=== PATIENT | female | born 1975 | race Caucasian/White ===

== ENCOUNTER 2018-01-16 17:42 | Emergency (ER) | payer MEDICAID, SELFPAY ==
[2018-01-16 17:44] VITALS: BP 118/72; PULSE 86; RESP 16; TEMP 36.9; O2SAT 98; BMI 29.5
--- NOTE | 2018-01-16 18:05 | CT_ITS ---
STUDY: CT ABDOMEN AND PELVIS WITHOUT CONTRAST REASON FOR EXAM: Female, 43 years old. Right flank pain RADIATION DOSAGE (If Supplied By Facility): CTDIvol = ( 14.41 ) mGy, DLP = ( 710.34 ) mGycm TECHNIQUE: Transaxial images were obtained from the dome of the diaphragm to the symphysis pubis without oral contrast, and without intravenous contrast. Sagittal and coronal images were reconstructed. Individualized dose optimization techniques were used for this CT. COMPARISON: None. FINDINGS: There is interstitial thickening at both lung bases. The visualized portions of the heart are within normal limits. Normal liver. Gallbladder has been removed surgically. Normal spleen. Normal pancreas. Normal bilateral adrenal glands. No evidence for renal obstruction or definitive evidence for ureteral calculus. There is a small cyst in the lateral aspect of the right kidney Normal visualized stomach. Normal small intestine. Diverticular changes of the descending and sigmoid colon without evidence for acute diverticulitis. The appendix is visualized and appears normal. Normal abdominal aorta. Normal inferior vena cava. Normal retroperitoneum. Normal urinary bladder. Normal uterus not visualized suggesting prior partial hysterectomy Normal abdominal wall. Lumbar spine demonstrates mild spondylosis.. There is grade 1 spondylolisthesis at L5-S1 status post bilateral laminectomy and posterior fusion. CT/Abdomen/Pelvis without Cont IMPRESSION: No evidence for obstruction or definitive evidence for ureteral calculus Postsurgical changes status post cholecystectomy. Diverticular changes of the descending and sigmoid colon without evidence for acute diverticulitis Electronically Signed: Edilberto Durham MD at 19:44 EDT , Service support ,
[2018-01-16] MEDS: Ondansetron 4 MG/2 ML Vial IV (18:33)
[2018-01-16] MEDS: 0.9% Normal Saline 1,000 ML 250 ML IV (18:33)
[2018-01-16] MEDS: Morphine 4 MG/ML Syringe IV (18:34)
[2018-01-16] MEDS: Ketorolac 30 MG/ML Syringe IV (18:34)
[2018-01-16 18:43] LABS: Absolute Lymphocyte Count 1.89 X10^3/ul (0.83-4.51); Basophil# 0.03 X10^3/uL; Basophil% 0.4 % (0-1); Eosinophil# 0.12 X10^3/uL; Eosinophils% 1.6 % (0-5); Hematocrit 42.8 % (37-47); Hemoglobin 14.3 g/dl (12.0-15.0); Lymphocyte # 1.89 X10^3/ul (4.0); Mean Corp Hgb Conc 33.4 g/gl (32-36); Mean Corpuscular Hgb 30.3 pg (27.0-32.0); Mean Corpuscular Volume 90.7 fL (81-99); Mean Platelet Vol. 9.8 fl (6.2-12.0); Monocyte# 0.49 X10^3/uL; Monocyte% 6.5 % (0-10); Neutrophil # 5.02 X10^3/uL (2.7-7.7); Neutrophil % 66.2 % (47-70); Platelet Count 168 K/mm3 (150-450); RBC Distribution Width CV 13.3 % (11.6-14.6); Red Blood Count 4.72 M/mm3 (4.2-5.4); White Blood Count 7.6 K/mm3 (4.4-11.0)
[2018-01-16 18:46] LABS: Differential Indicated SCAN CRITERIA MET; POSITIVE COUNT NO; POSITIVE DIFFERENTIAL NO; POSITIVE MORPHOLOGY YES
[2018-01-16 18:58] LABS: Anion Gap 6 (5-15); BUN 16 mg/dL (7-18); Calcium,Total 8.6 mg/dL (8.5-10.1); Chloride 107 mmol/L (98-107); Creatinine, Serum 0.94 mg/dL (0.55-1.02); EST Glomerular Filtration Rate 69 mL/min (>60); Est Glom Filt Rate - Afr Amer 84 mL/min (>60); Estimated Creatinine Clearance 66.64 ml/min; Glucose 94 mg/dL (74-106); Sodium Level 142 mmol/L (136-145)
[2018-01-16 19:05] LABS: Differential Comment SCANNED
[2018-01-16 20:07] LABS: Mucous, Urine 0 SEEN /hpf (<or=2+); Squamous Epithelial Cells - UA 0 SEEN /hpf (5-10)
[2018-01-16 20:10] LABS: Color, Urine Yellow (Yellow); Glucose, Dipstick Normal (Normal); Ketone-Dipstick 5 mg/dl (Negative); Leukocyte Esterase-Dipstick Negative /ul (Negative); Nitrite-Dipstick Negative (Negative); Occult Blood-Urine 10 /ul (Negative); Protein-Dipstick Negative (Negative); Specific Gravity, Urine 1.015 (1.002-1.030); Urine Bilirubin Dipstick Negative (Negative); Urine Clarity Cloudy (Clear); Urine Urobilinogen Normal (Normal)
[2018-01-16 20:25] LABS: Red Blood Cells-Urine 0-5 SEEN /hpf (0-5); White Blood Cells 0-5 SEEN /hpf (0-5)
[2018-01-16 20:26] LABS: Amorphous Sediment 3+; Bacteria 1+ /hpf (None Seen)
--- NOTE | 2018-01-16 20:40 | ED.DEP ---
ED Disposition - Plan for ED Patient: Disposition: Home or Assisted Living Chief Complaint: Flank Pain Instructions: ED Flank Pain Uncertain Cause Prescriptions: Ketorolac [Toradol] 10 mg PO Q6H PRN #20 tablet PRN Reason: Pain Referrals: Yolanda Corbett MD [STAFF PHYSICIAN] - Manisha Salter MD [STAFF PHYSICIAN] - Reece Vickers MD [STAFF PHYSICIAN] -
[2018-01-16 20:58] VITALS: BP 122/71; PULSE 74; RESP 16; O2SAT 97
--- NOTE | 2018-01-17 01:52 | ED.DCSUM_ITS ---
- ER Visit Summary Date of Service: 01/17/18 Chief Complaint: Right flank pain History of Present Illness: The patient is a 43 F with intermittent right flank pain for the past couple of weeks. She states it was worse today. It is sharp like an ice pick. She denies dysuria but does note she is not been urinating as much as normal. Patient has a history of kidney stones. She has had ureteral stents placed twice. She had an L 5, S1 fusion in August of this year and had a hysterectomy in February 2017. Patient's primary workup and evaluations have been done in [place]. She recently moved to this area with her daughter. Physical Examination: Vital signs are unremarkable. Patient sitting upright in bed no acute distress. Head neck examination is unremarkable. Heart is regular rate and rhythm. Lung sounds are clear. Abdomen is soft with no focal anterior tenderness. She has hypoactive bowel sounds. Back examination does reveal right CVA tenderness. Test Results: CBC and chemistry studies normal. Urinalysis shows 5 ketones. 0- 5 white cells, 0-5 red cells, and 3+ sediment are noted. CT flank shows no evidence of obstruction or definitive evidence of ureteral calculus. There is evidence of diverticulosis without diverticulitis. Emergency Department Course and Treatment: Patient was initially given morphine, Toradol, Zofran, and IV fluids. After returning from CT she was given 1 tab of Tornado by mouth. Test results are discussed with the patient. She will be treated with Toradol at home and referred to local physicians for follow-up. Treatment Plan: [] Disposition: Discharge Impression: Right flank pain, uncertain etiology This note was generated with [employer] dictation software. It may contain incorrect words, spelling, and punctuation that were not noted in review of the chart prior to signing ED Disposition - Plan for ED Patient: Disposition: Home or Assisted Living Chief Complaint: Flank Pain Instructions: ED Flank Pain Uncertain Cause Prescriptions: Ketorolac [Toradol] 10 mg PO Q6H PRN #20 tablet PRN Reason: Pain Referrals: Reece Vickers MD [STAFF PHYSICIAN] - Manisha Salter MD [STAFF PHYSICIAN] - Yolanda Corbett MD [STAFF PHYSICIAN] -
== END 2018-01-16 21:01 | disposition home or self-care (01) ==
PROVIDERS: Emergency Provider Emergency Medicine
DX: R10.9 Unspecified abdominal pain (principal); K57.90 Diverticulosis of intestine, part unspecified, without perforation or abscess without bleeding; Z90.710 Acquired absence of both cervix and uterus; Z87.442 Personal history of urinary calculi; Z98.1 Arthrodesis status
CPT/HCPCS: 74176; 80048; 81001; 85025; 96361; 96374; 96375; 99283; J7030; J2405

== ENCOUNTER 2018-02-12 00:08 | Emergency (ER) | payer MEDICAID, SELFPAY ==
[2018-02-12 00:08] VITALS: BP 150/81; PULSE 113; RESP 24; TEMP 36.8; O2SAT 100; BMI 30.1
[2018-02-12 00:13] VITALS: PULSE 104; RESP 21; O2SAT 97; O2SAT 99
--- NOTE | 2018-02-12 00:15 | RAD_ITS ---
STUDY: X-RAY CHEST REASON FOR EXAM: Female, 43 years old. Shortness of breath TECHNIQUE: Single frontal view of the chest. COMPARISON: None. FINDINGS: Basilar atelectasis. No focal consolidation. Question tiny left pleural effusion versus pleural thickening. Normal size heart. Normal mediastinum and myles. Normal visualized pulmonary arteries. Normal visualized aortic arch and descending thoracic aorta. Normal visualized thoracic spine. Normal visualized ribs, clavicles, and shoulders. There is no demonstrated abnormality of the visualized soft tissue structures of the upper abdomen. RAD/Chest 1 View (Portable) IMPRESSION: Question tiny left pleural effusion versus pleural thickening. Basilar atelectasis. No focal consolidation. Electronically Signed: Enrique Taylor, at 1:23 EST Tel , Service support ,
--- NOTE | 2018-02-12 00:16 | EKG12_ITS ---
Test Reason : CHEST TIGHTNESS Blood Pressure : / mmHG Vent. Rate : 102 BPM Atrial Rate : 102 BPM P-R Int : 172 ms QRS Dur : 086 ms QT Int : 348 ms P-R-T Axes : 061 029 048 degrees QTc Int : 453 ms Sinus tachycardia Otherwise normal ECG Confirmed by LUL KIDD, ROHINI ([id number]), photographic editor JEFF TYSON ([id number]) on 02/14/2018 1:05:19 PM Referred By: DR DICK Confirmed By:ROHINI MCCARTY MD
--- NOTE | 2018-02-12 00:19 | ED.RN ---
NO OLD EKGS IN MUSE
[2018-02-12] MEDS: 0.9% Normal Saline 1,000 ML 1000 ML IV (00:20)
[2018-02-12] MEDS: Ipratropium/Albuterol Sulfate 3 ML AMPUL.NEB INHALATION (00:23)
[2018-02-12] MEDS: Albuterol 2.5 MG/3 ML VIAL.NEB. INHALATION ×2 (00:23→00:54)
[2018-02-12 00:25] VITALS: PULSE 100; RESP 20
--- NOTE | 2018-02-12 00:26 | ED.VISSUMM ---
- ER Visit Summary Date of Service: 02/12/18 Chief Complaint: Shortness of breath History of Present Illness: The patient is a 43 F presenting with shortness of breath. Patient states she has not felt well for the past couple of weeks. She states she has a productive cough and shortness of breath. She had subjective fever and chills. She has had mild diarrhea. Denies nausea or vomiting. Denies abdominal pain. Denies chest pain. She has a history of asthma and uses an inhaler at home. She is a smoker. She denies PE/DVT risk factors. Physical Examination: Vitals are stable. Patient is afebrile. Alert no acute distress. HEENT exam is unremarkable. Pharynx is normal, uvula midline. Neck is supple. Lungs are mild expiratory wheezing bilaterally. Heart is regular and tachycardic Abdomen is soft nontender nondistended. Extremities are unremarkable. Skin is warm and dry. No focal neurologic deficit. Remainder of exam is unremarkable. Emergency Department Course and Treatment: EKG is sinus tachycardia rate of 102 with no acute ischemic changes. She is given IV fluids, albuterol, Atrovent aerosols. CBC, chemistries unremarkable. D-dimer is normal. Troponin is negative. Patient is feeling improved following aerosols. She has a Symbicort inhaler but she does not have an albuterol inhaler. She is given albuterol MDI. Chest x-ray shows question tiny left pleural effusion versus pleural thickening. Basilar atelectasis. No focal consolidation. On reevaluation, patient is feeling much improved. Lungs are clear to auscultation bilaterally. She is given prednisone and a prescription for prednisone. She is advised to follow-up with her primary care physician. Advised return to ED for any worsening complaints. Disposition: Discharge home Impression: URI, asthma This note was generated with [employer] dictation software. It may contain incorrect words, spelling, and punctuation that were not noted in review of the chart prior to signing ED Disposition - Plan for ED Patient: Chief Complaint: Shortness of Breath Referrals: Care Physician,No Primary [Primary Care Provider] -
[2018-02-12 00:37] LABS: Absolute Lymphocyte Count 1.51 X10^3/ul (0.83-4.51); Absolute Neutrophil Count 8.3 X10^3/uL (2.0-7.7); Basophil# 0.04 X10^3/uL; Basophil% 0.4 % (0-1); Eosinophil# 0.05 X10^3/uL; Eosinophils% 0.5 % (0-5); Hematocrit 43.8 % (37-47); Hemoglobin 14.9 g/dl (12.0-15.0); Lymphocyte # 1.51 X10^3/ul (4.0); Lymphocyte % 14.3 % (19-41); Mean Corpuscular Hgb 30.2 pg (27.0-32.0); Mean Corpuscular Volume 88.8 fL (81-99); Mean Platelet Vol. 9.5 fl (6.2-12.0); Monocyte# 0.65 X10^3/uL; Monocyte% 6.2 % (0-10); Neutrophil # 8.26 X10^3/uL (2.7-7.7); Neutrophil % 78.3 % (47-70); Platelet Count 161 K/mm3 (150-450); RBC Distribution Width CV 13.4 % (11.6-14.6); Red Blood Count 4.93 M/mm3 (4.2-5.4); White Blood Count 10.5 K/mm3 (4.4-11.0)
[2018-02-12 00:40] LABS: POSITIVE COUNT NO; POSITIVE DIFFERENTIAL NO; POSITIVE MORPHOLOGY NO
[2018-02-12 00:46] LABS: D-Dimer Quantitative (DVT/PE) 0.42 FEU/ug/m (0.27-0.49)
[2018-02-12 00:52] LABS: Anion Gap 8 (5-15); BUN 10 mg/dL (7-18); BUN/Creat Ratio 12.6 RATIO (10-20); Calcium,Total 8.3 mg/dL (8.5-10.1); Chloride 109 mmol/L (98-107); EST Glomerular Filtration Rate 84 mL/min (>60); Est Glom Filt Rate - Afr Amer 101 mL/min (>60); Estimated Creatinine Clearance 75.01 ml/min; Glucose 99 mg/dL (74-106); Potassium 3.5 mmol/L (3.5-5.1); Sodium Level 141 mmol/L (136-145)
[2018-02-12 00:55] VITALS: PULSE 101; RESP 20
--- NOTE | 2018-02-12 01:31 | ED.DEP ---
ED Disposition - Plan for ED Patient: Chief Complaint: Shortness of Breath Instructions: ED Bronchitis Asthmatic Prescriptions: Prednisone [Deltasone] 40 mg PO DAILY #10 tablet Referrals: Care Physician,No Primary [Primary Care Provider] -
[2018-02-12] MEDS: predniSONE 20 MG Tablet 60 MG PO (01:50)
[2018-02-12 01:55] VITALS: BP 128/72; PULSE 98; RESP 15; O2SAT 98
== END 2018-02-12 01:56 | disposition home or self-care (01) ==
LOC: ED 00:49
PROVIDERS: Emergency Provider Emergency Medicine
DX: J06.9 Acute upper respiratory infection, unspecified (principal); J45.909 Unspecified asthma, uncomplicated; R19.7 Diarrhea, unspecified; Z72.0 Tobacco use
CPT/HCPCS: 71045; 80048; 84484; 85025; 85379; 93005; 94640; 94664; 99284; J7030; A4216

== ENCOUNTER 2018-03-05 22:17 | Emergency (ER) | payer MEDICAID, SELFPAY ==
[2018-03-05 22:18] VITALS: BP 132/82; PULSE 97; RESP 16; TEMP 37.1; O2SAT 97; BMI 32.8
--- NOTE | 2018-03-05 22:33 | CT_ITS ---
STUDY: CT ABDOMEN AND PELVIS WITHOUT CONTRAST REASON FOR EXAM: Female, 43 years old. Bilateral flank pain. History of kidney stones with stents and lithotripsy. History of diverticulitis. RADIATION DOSAGE (If Supplied By Facility): CTDIvol = ( 14.01 ) mGy, DLP = ( 749.12 ) mGycm TECHNIQUE: Transaxial images were obtained from the dome of the diaphragm to the symphysis pubis without oral contrast, and without intravenous contrast. Sagittal and coronal images were reconstructed. Individualized dose optimization techniques were used for this CT. COMPARISON: CT of the abdomen and pelvis, January 16, 2018. FINDINGS: The visualized lung bases are unremarkable. The visualized portions of the heart are within normal limits. Normal liver. There are surgical clips in the gallbladder fossa consistent with a prior cholecystectomy. Normal spleen. Normal pancreas. Normal bilateral adrenal glands. There is 1.3 cm exophytic cyst off the upper pole of the right kidney. Normal left kidney. Normal bilateral ureters. Normal visualized stomach. Normal small intestine. Scattered sigmoid diverticuli without acute inflammatory change. The proximal colon is unremarkable. The appendix is visualized and appears normal. Normal abdominal aorta. Normal inferior vena cava. Normal retroperitoneum. Normal urinary bladder. Normal vaginal cuff. There is soft tissue density along both pelvic side paula thought to represent retained ovaries. No free air or free fluid is seen within the peritoneal cavity. Normal abdominal wall. There is surgical fusion of L5-S1. CT/Abdomen/Pelvis without Cont IMPRESSION: No acute intra-abdominal or pelvic abnormality or major interval change. Electronically Signed: Donovan Thakkar DO at 23:19 EST Tel [phone], Service support ,
[2018-03-05] MEDS: Ketorolac 30 MG/ML Syringe IV (22:40)
[2018-03-05] MEDS: Ondansetron 4 MG/2 ML Vial IV (22:40)
[2018-03-05] MEDS: 0.9% Normal Saline 1,000 ML 1000 ML IV (22:40)
[2018-03-05 22:47] LABS: Absolute Lymphocyte Count 1.84 X10^3/ul (0.83-4.51); Absolute Neutrophil Count 5.3 X10^3/uL (2.0-7.7); Basophil# 0.02 X10^3/uL; Basophil% 0.2 % (0-1); Eosinophil# 0.14 X10^3/uL; Eosinophils% 1.7 % (0-5); Hematocrit 43.2 % (37-47); Hemoglobin 14.2 g/dl (12.0-15.0); Lymphocyte # 1.84 X10^3/ul (4.0); Mean Corp Hgb Conc 32.9 g/gl (32-36); Mean Corpuscular Hgb 30.1 pg (27.0-32.0); Mean Corpuscular Volume 91.5 fL (81-99); Mean Platelet Vol. 9.4 fl (6.2-12.0); Monocyte# 0.66 X10^3/uL; Monocyte% 8.2 % (0-10); Neutrophil # 5.34 X10^3/uL (2.7-7.7); Neutrophil % 66.8 % (47-70); POSITIVE COUNT NO; POSITIVE DIFFERENTIAL NO; POSITIVE MORPHOLOGY NO; Platelet Count 172 K/mm3 (150-450); RBC Distribution Width CV 13.3 % (11.6-14.6); RBC Distribution Width SD 44.4 fl (35.1-43.9); Red Blood Count 4.72 M/mm3 (4.2-5.4)
[2018-03-05 22:58] LABS: AST(SGOT) 11 U/L (15-37); Alanine Aminotransfer ALT/SGPT 15 U/L (13-56); Albumin, Serum 3.3 g/dL (3.2-5.0); Alkaline Phosphatase 73 U/L (45-117); Anion Gap 3 (5-15); BUN 22 mg/dL (7-18); Calcium,Total 8.3 mg/dL (8.5-10.1); Chloride 109 mmol/L (98-107); EST Glomerular Filtration Rate 58 mL/min (>60); Est Glom Filt Rate - Afr Amer 70 mL/min (>60); Estimated Creatinine Clearance 54.55 ml/min; Globulin 3.4 g/dL (2.2-4.2); Glucose 108 mg/dL (74-106); Lipase 170 U/L (73-393); Potassium 3.7 mmol/L (3.5-5.1); Protein, Total 6.7 g/dL (6.4-8.2); Sodium Level 141 mmol/L (136-145)
[2018-03-05 23:44] LABS: Bacteria 0 SEEN /hpf (None Seen); Red Blood Cells-Urine 0 SEEN /hpf (0-5)
[2018-03-05 23:55] LABS: Color, Urine Yellow (Yellow); Glucose, Dipstick Normal (Normal); Ketone-Dipstick Negative (Negative); Leukocyte Esterase-Dipstick 25 /ul (Negative); Nitrite-Dipstick Negative (Negative); Occult Blood-Urine 10 /ul (Negative); Protein-Dipstick Negative (Negative); Urine Bilirubin Dipstick Negative (Negative); Urine Clarity Clear (Clear); Urine Urobilinogen 1 mg/dl (Normal)
[2018-03-06 00:15] LABS: White Blood Cells 0-5 SEEN /hpf (0-5)
[2018-03-06 00:16] LABS: Mucous, Urine 1+ /hpf (<or=2+)
[2018-03-06 00:18] LABS: Squamous Epithelial Cells - UA 0-5 SEEN /hpf (5-10)
[2018-03-06 00:19] LABS: Amorphous Sediment 1+
--- NOTE | 2018-03-06 00:26 | ED.DCSUM_ITS ---
- ER Visit Summary Date of Service: 03/06/18 Chief Complaint: Flank pain History of Present Illness: The patient is a 43 F who presents with flank pain. She complains of 2 days of bilateral flank pain and lower back pain. She describes this as dull. She did have nausea vomiting and diarrhea which began y esterday. She actually has had no further vomiting today. She denies any dysuria frequency or urgency but has noticed a foul odor to her urine. No fevers chest pain shortness of breath. She does have a history of kidney stones. Physical Examination: Afebrile vitals are unremarkable Moist mucous membranes Heart regular rate and rhythm Lungs are clear Abdomen soft nondistended he has bilateral flank and lateral abdominal tenderness Alert Test Results: Labs notable for BUN 22, creatinine 1.1. Hepatic function lipase unremarkable. Urinalysis shows no WBCs and no bacteria, not consistent with infection. CT the abdomen and pelvis shows no acute abnormality. Emergency Department Course and Treatment: Patient was treated here with IV fluids Toradol and Zofran. Her workup is unremarkable. Given that she did develop vomiting and diarrhea this may be related to a gastroenteritis with colonic spasm. She was given prescriptions for Bentyl and Zofran. She was advised to follow-up as an outpatient. She understands to return for new or worsening symptoms. She was discharged. Treatment Plan: [] Disposition: Discharge Impression: Abdominal pain Vomiting Diarrhea This note was generated with [employer] dictation software. It may contain incorrect words, spelling, and punctuation that were not noted in review of the chart prior to signing ED Disposition - Plan for ED Patient: Chief Complaint: Flank Pain Referrals: Care Physician,No Primary [Primary Care Provider] -
--- NOTE | 2018-03-06 00:27 | ED.DEP ---
ED Disposition - Plan for ED Patient: Chief Complaint: Flank Pain Instructions: ED Abdominal Pain Unkn Cause, ED Gastroenteritis Viral Prescriptions: Ondansetron [Zofran Odt] 4 mg PO Q8H PRN PRN #10 tab PRN Reason: Nausea Dicyclomine HCl [Bentyl] 20 mg PO TID #20 cap Referrals: Care Physician,No Primary [Primary Care Provider] -
[2018-03-06 00:40] VITALS: BP 118/76; PULSE 78; RESP 15; O2SAT 98
--- NOTE | 2018-03-06 00:41 | ED.RN ---
PT GIVEN WRITTEN AND VERBAL DISCHARGE INSTRUCTIONS AND HOME GOING PRESCRIPTIONS. PT VERBALIZES UNDERSTANDING AND DENIES ANY FURTHER QUESTIONS. PT IV D/C ND COVERED WITH 2X2 GAUZE AND PAPER TAPE. PT CALLING A CAB FOR A RIDE HOME.
--- OUTSIDE RECORDS SUMMARY | 2018-04-17 17:34 | XMS RPT_ITS ---
:1975 Author Organization OH[facility] Care Team Providers Name Role Phone Maegan Nowak Attending Unavailable Primay Care Physicia, No Primary Care Unavailable Primay Care Physicia, No Primary Care Unavailable Southern, Tania Attending Unavailable Primay Care Physicia, No Primary Care Unavailable Mukul Negrete Attending Unavailable PROBLEMS PROBLEMS DATE TYPE CONDITION / CODE ATTENDING STATUS SOURCE 03/20/2018 Unknown R06.02 - Southern, Active [place] Shortness of Tania [facility] breath / Hospital R06.02(ICD-10) Repository 02/09/2018 Unknown R10.9 - Maegan Nowak Active [place] Unspecified [facility] abdominal pain / Hospital R10.9(ICD-10) Repository PROCEDURES PROCEDURES No Procedure Records FoundRESULTS RESULTS DISCHARGE INSTRUCTION Observed: 03/06/2018 Status: F Source: [place] 12:28 AM [facility] REPOSITORY [facility] Medical Records Department [address] [place] [address] Discharge Instruction 03/06/18 0027 MR#: [id number] Acct: [id number] Name: WAN DUBOSE Rep #: [id number] : 1975 43 From: Mukul Negrete MD PCP: Care Physician, No Primary Status: REG ER ED Disposition - Plan for ED Patient: Chief Complaint: Flank Pain Instructions: ED Abdominal Pain Unkn Cause, ED Gastroenteritis Viral Prescriptions: Ondansetron [Zofran Odt] 4 mg PO Q8H PRN PRN #10 tab PRN Reason: Nausea Dicyclomine HCl [Bentyl] 20 mg PO TID #20 cap Referrals: Care Physician,No Primary [Primary Care Provider] - What to do if you have Problems For any increased pain, shortness of breath, bleeding, nausea or vomiting, chest pain, or any unexpected problems, contact your Primary Care Provider. Call [facility] ([phone]) or report to the closest Emergency Room. Call 911 if necessary. 03/06/18 0028 <Electronically signed by Mukul Negrete MD> Date Mukul Negrete MD Cosigner Signature (If Indicated): Date CC: No Primary Care Physician EMERGENCY DEPARTMENT Observed: 03/06/2018 Status: F Source: [place] SUMMARY 12:27 AM [facility] REPOSITORY [facility] Medical Records Department [address] [place] [address] Emergency Department Summary 03/06/18 0024 MR#: [id number] Acct: [id number] Name: WAN DUBOSE Rep #: [id number] : 1975 43 From: Mukul Negrete MD PCP: Yakov Physician, No Primary Status: REG ER - ER Visit Summary Date of Service: 03/06/18 Chief Complaint: Flank pain History of Present Illness: The patient is a 43 F who presents with flank pain. She complains of 2 days of bilateral flank pain and lower back pain. She describes this as dull. She did have nausea vomiting and diarrhea which began yesterday. She actually has had no further vomiting today. She denies any dysuria frequency or urgency but has noticed a foul odor to her urine. No fevers chest pain shortness of breath. She does have a history of kidney stones. Physical Examination: Afebrile vitals are unremarkable Moist mucous membranes Heart regular rate and rhythm Lungs are clear Abdomen soft nondistended he has bilateral flank and lateral abdominal tenderness Alert Test Results: Labs notable for BUN 22, creatinine 1.1. Hepatic function lipase unremarkable. Urinalysis shows no WBCs and no bacteria, not consistent with infection. CT the abdomen and pelvis shows no acute abnormality. Emergency Department Course and Treatment: Patient was treated here with IV fluids Toradol and Zofran. Her workup is unremarkable. Given that she did develop vomiting and diarrhea this may be related to a gastroenteritis with colonic spasm. She was given prescriptions for Bentyl and Zofran. She was advised to follow-up as an outpatient. She understands to return for new or worsening symptoms. She was discharged. Treatment Plan: [] Disposition: Discharge Impression: Abdominal pain Vomiting Diarrhea This note was generated with e-SENS dictation software. It may contain incorrect words, spelling, and punctuation that were not noted in review of the chart prior to signing ED Disposition - Plan for ED Patient: Chief Complaint: Flank Pain Referrals: Care Physician,No Primary [Primary Care Provider] - What to do if you have Problems For any increased pain, shortness of breath, bleeding, nausea or vomiting, chest pain, or any unexpected problems, contact your Primary Care Provider. Call [facility] ([phone]) or report to the closest Emergency Room. Call 911 if necessary. 03/06/18 0027 <Electronically signed by Mukul Negrete MD> Date Mukul Negrete MD Cosigner Signature (If Indicated): Date CC: No Primary Care Physician URINALYSIS, COMPLETE Collected: 03/05/2018 Status: F Source: [place] 11:35 PM [facility] REPOSITORY Order Comment: Order Date: 03/05/18 How was Urine Obtained? NATIONAL ACCOUNT EXECUTIVE TO SPECIFY TYPE CODE TESTS RESULT OUT OF RANGE REFERENCE UNITS LAB L400.3000 Yellow COLOR Normal Yellow LAB L400.3050 Clear Normal CLARITY Clear LAB L400.3200 Normal mg/dl Normal GLUCOSE, UR Normal LAB L400.3300 Negative mg/dL Normal BILIRUBIN URINE Negative LAB L400.3400 Negative mg/dl Normal KETONE UR Negative LAB L400.3465 1.002-1.030 Normal SP.GR. DIPSTX 1.010 LAB L400.3550 5.0 - 8.0 pH UR Normal 7.0 LAB L400.3600 Negative mg/dl PROT Normal DIPSTX Negative LAB L400.3700 Normal mg/dl High 1 UROBILI LAB L400.3750 Negative Normal NITRITE UR Negative LAB L400.3780 Negative /ul High 10 OCCULT BLOOD-UR LAB L400.3800 Negative /ul High LEUK 25 ESTERASE LAB L400.4050 0-5 /hpf WBC Normal 0-5 SEEN LAB L400.4100 0-5 /hpf 0 Normal RBC-UA SEEN LAB L400.4150 5-10 /hpf SQUAM Normal EPI 0-5 SEEN LAB L400.4300 None Seen /hpf 0 Normal BACTERIA SEEN LAB L400.4350 <or=2+ /hpf 1+ Normal MUCUS, URINE LAB L400.4900 1+ Normal AMORPHOUS Performed By: #### L400.0001 #### [facility] Laboratory [address] [facility] [place], [address] ABDOMEN/PELVIS WITHOUT Observed: 03/05/2018 Status: F Source: [place] CONT 10:34 PM [facility] REPOSITORY [facility] Imaging Services [address] [place] [address] Abdomen/Pelvis without Cont MR#: [id number] Acct: [id number] Name: WAN DUBOSE Rep #: [id number] : 1975 F 43 From: Donovan Thakkar DO PCP: Care Physician, No Primary Status: REG ER Study: Abdomen/Pelvis without Cont Date of Exam: 03/05/18 Exam# [id number] Ordering Dr: Mukul Negrete MD STUDY: CT ABDOMEN AND PELVIS WITHOUT CONTRAST REASON FOR EXAM: Female, 43 years old. Bilateral flank pain. History of kidney stones with stents and lithotripsy. History of diverticulitis. RADIATION DOSAGE (If Supplied By Facility): CTDIvol = ( 14.01 ) mGy, DLP = ( 749.12 ) mGycm TECHNIQUE: Transaxial images were obtained from the dome of the diaphragm to the symphysis pubis without oral contrast, and without intravenous contrast. Sagittal and coronal images were reconstructed. Individualized dose optimization techniques were used for this CT. COMPARISON: CT of the abdomen and pelvis, January 16, 2018. FINDINGS: The visualized lung bases are unremarkable. The visualized portions of the heart are within normal limits. Normal liver. There are surgical clips in the gallbladder fossa consistent with a prior cholecystectomy. Normal spleen. Normal pancreas. Normal bilateral adrenal glands. There is 1.3 cm exophytic cyst off the upper pole of the right kidney. Normal left kidney. Normal bilateral ureters. Normal visualized stomach. Normal small intestine. Scattered sigmoid diverticuli without acute inflammatory change. The proximal colon is unremarkable. The appendix is visualized and appears normal. Normal abdominal aorta. Normal inferior vena cava. Normal retroperitoneum. Normal urinary bladder. Normal vaginal cuff. There is soft tissue density along both pelvic side paula thought to represent retained ovaries. No free air or free fluid is seen within the peritoneal cavity. Normal abdominal wall. There is surgical fusion of L5-S1. CT/Abdomen/Pelvis without Cont IMPRESSION: No acute intra-abdominal or pelvic abnormality or major interval change. Electronically Signed: Donovan Thakkar DO at 23:19 EST Tel [phone], Service support , CC: No Primary Care Physician; Mukul Negrete MD [employer]oles[employer] Salesperson: Signed CBC W/DIFF, AUTOMATED Collected: 03/05/2018 Status: F Source: [place] 9:25 PM [facility] REPOSITORY TYPE CODE TESTS RESULT OUT OF RANGE REFERENCE UNITS LAB L100.1000 4.4-11.0 K/mm3 Normal WBC 8.0 LAB L100.1200 4.2-5.4 M/mm3 Normal RBC 4.72 LAB L100.1300 12.0-15.0 g/dl Normal HGB 14.2 LAB L100.1400 37-47 % Normal HCT 43.2 LAB L100.1500 81-99 fL Normal MCV 91.5 LAB L100.1600 27.0-32.0 pg Normal MCH 30.1 LAB L100.1700 32-36 g/gl Normal MCHC 32.9 LAB L100.1810 11.6-14.6 % Normal RDW CV 13.3 LAB L100.1820 35.1-43.9 fl High RDW SD 44.4 LAB L100.1900 150-450 K/mm3 Normal PLT 172 LAB L100.2000 6.2-12.0 fl Normal MPV 9.4 LAB L100.2100 47-70 % Normal NEUT% 66.8 LAB L100.2200 19-41 % Normal LY% 23.0 LAB L100.2300 0-10 % Normal MONO% 8.2 LAB L100.2400 0-5 % Normal EO% 1.7 LAB L100.2500 0-1 % Normal BASO% 0.2 LAB L100.2550 0.0-0.9 % Normal IM GRAN % 0.100 Result Comment: IG% - Immature Granulocytes (promyelocytes, myelocytes and metamyelocytes) > 1% indicates that a LEFT SHIFT is Present. LAB L100.2620 2.0-7.7 X10 3/uL Normal Absolute Neut 5.3 LAB L100.2720 0.83-4.51 X10 3/ul Normal Absolute Lymph 1.84 Performed By: #### L100.0100 #### [facility] Laboratory [address] [place], [address] COMPREHENSIVE METABOLIC Collected: 03/05/2018 Status: F Source: [facility] 9:25 PM [facility] REPOSITORY TYPE CODE TESTS RESULT OUT OF RANGE REFERENCE UNITS LAB L501.0100 74-106 mg/dL High GLU 108 Result Comment: Fasting Glucose result from 100 to 125 mg/dL suggests IMPAIRED HOMEOSTASIS per A.D.A. criteria. Please note revised GLUCOSE reference range effective 2017. LAB L501.1000 7-18 mg/dL High BUN 22 LAB L501.1100 0.55-1.02 mg/dL High CREAT,SERUM 1.10 Result Comment: The validity of the calculated GFR AND GFRAA in patients over 70 years has not been determined. Clinical correlation is essential. LAB L501.1110 >60 mL/min Low EST GFR 58 Result Comment: Non- GFR Calc LAB L501.1115 >60 mL/min Normal EST GFR - AA 70 Result Comment: GFR Calc LAB L501.1255 ml/min Normal Estimated CRCL 54.55 LAB L501.1300 10-20 RATIO Normal BUN/CRE 20.0 LAB L501.1500 6.4-8. g/dL Normal 2 T PROT 6.7 LAB L501.1800 3.2-5. g/dL Normal 0 ALB 3.3 LAB L501.1950 2.2-4. g/dL Normal 2 GLOB 3.4 LAB L501.2000 0.9-2. RATIO Normal 4 A/G 1.0 LAB L501.2200 8.5-10 mg/dL Low .1 CA 8.3 LAB L501.4100 15-37 U/L Low AST 11 LAB L501.4305 45-117 U/L Normal ALK P 73 LAB L501.4405 13-56 U/L Normal ALT 15 LAB L501.4600 0.20-1 mg/dL Normal .00 T BILI 0.30 LAB L501.5300 136-14 mmol/L Normal 5 NA 141 LAB L501.5600 3.5-5. mmol/L Normal 1 K 3.7 LAB L501.5900 98-107 mmol/L High CL 109 LAB L501.6100 21.0-3 mmol/L Normal 2.0 CO2 29.0 LAB L501.6200 5-15 Low GAP 3 Performed By: #### L500.4050, L501.2450 #### [facility] Laboratory [address] [place], [address] LIPASE Collected: 03/05/2018 Status: F Source: [place] 9:25 PM [facility] REPOSITORY TYPE CODE TESTS RESULT OUT OF RANGE REFERENCE UNITS LAB L501.2450 73-393 U/L Normal LIPASE 170 Performed By: #### L500.4050, L501.2450 #### [facility] Laboratory [address] [facility] [place], [address] 12 LEAD ELECTROCARDIOGRAM Observed: 02/14/2018 Status: F Source: [place] 1:05 PM [facility] REPOSITORY [facility] Cardiovascular Services [address] [place] [address] 12 Lead EKG 02/12/18 0021 MR#: [id number] Acct: [id number] Name: WAN DUBOSE Rep #: [id number] : 1975 43 From: Garrett Washington MD Attending Dr: Status: DEP ER Ordering Dr: Tania Dick MD Date: 02/12/18 Location: ED Sex: F C Admitted: Test Reason : CHEST TIGHTNESS Blood Pressure : / mmHG Vent. Rate : 102 BPM Atrial Rate : 102 BPM P-R Int : 172 ms QRS Dur : 086 ms QT Int : 348 ms P-R-T Axes : 061 029 048 degrees QTc Int : 453 ms Sinus tachycardia Otherwise normal ECG Confirmed by GARRETT WASHINGTON MD ([id number]), staff editor JEFF TYSON ([id number]) on 02/14/2018 1:05:19 PM Referred By: DR DICK Confirmed By:GARRETT WASHINGTON MD 02/14/18 1305 Date Garrett Washington MD CC: No Primary Care Physician; Tania Dick MD Signed EMERGENCY DEPARTMENT Observed: 02/12/2018 Status: F Source: [place] SUMMARY 1:31 AM [facility] REPOSITORY [facility] Medical Records Department [address] [place] [address] Emergency Department Summary 02/12/18 0026 MR#: [id number] Acct: [id number] Name: WAN DUBOSE Rep #: [id number] : 1975 43 From: Tania Dick MD PCP: Care Physician, No Primary Status: REG ER - ER Visit Summary Date of Service: 02/12/18 Chief Complaint: Shortness of breath History of Present Illness: The patient is a 43 F presenting with shortness of breath. Patient states she has not felt well for the past couple of weeks. She states she has a productive cough and shortness of breath. She had subjective fever and chills. She has had mild diarrhea. Denies nausea or vomiting. Denies abdominal pain. Denies chest pain. She has a history of asthma and uses an inhaler at home. She is a smoker. She denies PE/DVT risk factors. Physical Examination: Vitals are stable. Patient is afebrile. Alert no acute distress. HEENT exam is unremarkable. Pharynx is normal, uvula midline. Neck is supple. Lungs are mild expiratory wheezing bilaterally. Heart is regular and tachycardic Abdomen is soft nontender nondistended. Extremities are unremarkable. Skin is warm and dry. No focal neurologic deficit. Remainder of exam is unremarkable. Emergency Department Course and Treatment: EKG is sinus tachycardia rate of 102 with no acute ischemic changes. She is given IV fluids, albuterol, Atrovent aerosols. CBC, chemistries unremarkable. D-dimer is normal. Troponin is negative. Patient is feeling improved following aerosols. She has a Symbicort inhaler but she does not have an albuterol inhaler. She is given albuterol MDI. Chest x-ray shows question tiny left pleural effusion versus pleural thickening. Basilar atelectasis. No focal consolidation. On reevaluation, patient is feeling much improved. Lungs are clear to auscultation bilaterally. She is given prednisone and a prescription for prednisone. She is advised to follow-up with her primary care physician. Advised return to ED for any worsening complaints. Disposition: Discharge home Impression: URI, asthma This note was generated with e-SENS dictation software. It may contain incorrect words, spelling, and punctuation that were not noted in review of the chart prior to signing ED Disposition - Plan for ED Patient: Chief Complaint: Shortness of Breath Referrals: Care Physician,No Primary [Primary Care Provider] - What to do if you have Problems For any increased pain, shortness of breath, bleeding, nausea or vomiting, chest pain, or any unexpected problems, contact your Primary Care Provider. Call [facility] ([phone]) or report to the closest Emergency Room. Call 911 if necessary. 02/12/18 0131 <Electronically signed by Tania Dick MD> Date Tania Dick MD Cosigner Signature (If Indicated): Date CC: No Primary Care Physician DISCHARGE INSTRUCTION Observed: 02/12/2018 Status: F Source: [place] 1:31 AM [facility] REPOSITORY [facility] Medical Records Department [address] [place] [address] Discharge Instruction 02/12/18130 MR#: [id number] Acct: [id number] Name: WAN DUBOSE Rep #: [id number] : 1975 43 From: Tania Dick MD PCP: Care Physician, No Primary Status: REG ER ED Disposition - Plan for ED Patient: Chief Complaint: Shortness of Breath Instructions: ED Bronchitis Asthmatic Prescriptions: Prednisone [Deltasone] 40 mg PO DAILY #10 tablet Referrals: Care Physician,No Primary [Primary Care Provider] - What to do if you have Problems For any increased pain, shortness of breath, bleeding, nausea or vomiting, chest pain, or any unexpected problems, contact your Primary Care Provider. Call [facility] ([phone]) or report to the closest Emergency Room. Call 911 if necessary. 02/12/18130 <Electronically signed by Tania Dick MD> Date Tania Dick MD Cosigner Signature (If Indicated): Date CC: No Primary Care Physician CBC W/DIFF, AUTOMATED Collected: 02/12/2018 Status: F Source: [place] 12:20 AM [facility] REPOSITORY TYPE CODE TESTS RESULT OUT OF RANGE REFERENCE UNITS LAB L100.1000 4.4-11.0 K/mm3 Normal WBC 10.5 LAB L100.1200 4.2-5.4 M/mm3 Normal RBC 4.93 LAB L100.1300 12.0-15.0 g/dl Normal HGB 14.9 LAB L100.1400 37-47 % Normal HCT 43.8 LAB L100.1500 81-99 fL Normal MCV 88.8 LAB L100.1600 27.0-32.0 pg Normal MCH 30.2 LAB L100.1700 32-36 g/gl Normal MCHC 34.0 LAB L100.1810 11.6-14.6 % Normal RDW CV 13.4 LAB L100.1820 35.1-43.9 fl Normal RDW SD 43.0 LAB L100.1900 150-450 K/mm3 Normal PLT 161 LAB L100.2000 6.2-12.0 fl Normal MPV 9.5 LAB L100.2100 47-70 % High NEUT% 78.3 LAB L100.2200 19-41 % Low LY% 14.3 LAB L100.2300 0-10 % Normal MONO% 6.2 LAB L100.2400 0-5 % Normal EO% 0.5 LAB L100.2500 0-1 % Normal BASO% 0.4 LAB L100.2550 0.0-0.9 % Normal IM GRAN % 0.300 Result Comment: IG% - Immature Granulocytes (promyelocytes, myelocytes and metamyelocytes) > 1% indicates that a LEFT SHIFT is Present. LAB L100.2620 2.0-7.7 X10 3/uL High Absolute Neut 8.3 LAB L100.2720 0.83-4.51 X10 3/ul Normal Absolute Lymph 1.51 Performed By: #### L100.0100 #### [facility] [address] [place] [address], [id number] D-DIMER QUANTITATIVE Collected: 02/12/2018 Status: F Source: [place] (DVT/PE) 12:20 AM [facility] REPOSITORY TYPE CODE TESTS RESULT OUT OF RANGE REFERENCE UNITS LAB L300.8000 0.27-0.49 FEU/ug/m Normal D-DIMER 0.42 QUANT Result Comment: NORMAL D-Dimer level (<0.50) indicates no DVT or PE. Performed By: #### L300.8000 #### [facility] [address] [place], [place], [id number] BASIC METABOLIC Collected: 02/12/2018 Status: F Source: [place] PROFILE (BMP) 12:20 AM [facility] REPOSITORY TYPE CODE TESTS RESULT OUT OF RANGE REFERENCE UNITS LAB L501.0100 74-106 mg/dL Normal GLU 99 Result Comment: Please note revised GLUCOSE reference range effective 2017. LAB L501.1000 7-18 mg/dL Normal BUN 10 LAB L501.1100 0.55-1.02 mg/dL Normal CREAT,SERUM 0.80 Result Comment: The validity of the calculated GFR AND GFRAA in patients over 70 years has not been determined. Clinical correlation is essential. LAB L501.1110 >60 mL/min Normal EST GFR 84 Result Comment: Non- GFR Calc LAB L501.1115 >60 mL/min Normal EST GFR - AA 101 Result Comment: GFR Calc LAB L501.1255 ml/min Normal Estimated CRCL 75.01 LAB L501.1300 10-20 RATIO Normal BUN/CRE 12.6 LAB L501.2200 8.5-10 mg/dL Low .1 CA 8.3 LAB L501.5300 136-14 mmol/L Normal 5 NA 141 LAB L501.5600 3.5-5. mmol/L Normal 1 K 3.5 LAB L501.5900 98-107 mmol/L High CL 109 LAB L501.6100 21.0-3 mmol/L Normal 2.0 CO2 24.0 LAB L501.6200 5-15 Normal GAP 8 Performed By: #### L500.2500, L501.4010 #### [facility] [address] [place], [address] TROPONIN-I Collected: 02/12/2018 Status: F Source: [place] 12:20 AM [facility] REPOSITORY TYPE CODE TESTS RESULT OUT OF RANGE REFERENCE UNITS LAB L501.4010 <0.045 ng/mL Normal < 0.015 TROPONIN-I Result Comment: TROPONIN-I EXPECTED VALUES <0.045 Negative 0.045 - 0.590 Consistent with Cardiac Damage > OR = 0.600 Critical Value Not every elevated troponin is indicative of VA. These values should be used with clinical judgement in examining the patient's clinical picture for diagnosis. To establish a diagnosis of VA versus myocardial injury, there must be a demonstrated rise and/or fall in the troponin values, in addition to ischemic symptoms, EKG changes, new regional wall motion abnormality, and/or angiographical evidence. PLEASE NOTE: REFERENCE RANGES EDITED 17 Performed By: #### L500.2500, L501.4010 #### [facility] [address] [place], [address] CHEST 1 VIEW Observed: 02/12/2018 Status: F Source: [place] (PORTABLE) 12:17 AM [facility] REPOSITORY [facility] Imaging Services [address] [place] [address] Chest 1 View (Portable) MR#: [id number] Acct: [id number] Name: WAN DUBOSE Rep #: [id number] : 1975 F 43 From: Enrique Taylor MD PCP: Care Physician, No Primary Status: REG ER Study: Chest 1 View (Portable) Date of Exam: 02/12/18 Exam# [id number] Ordering Dr: Tania Dick MD STUDY: X-RAY CHEST REASON FOR EXAM: Female, 43 years old. Shortness of breath TECHNIQUE: Single frontal view of the chest. COMPARISON: None. FINDINGS: Basilar atelectasis. No focal consolidation. Question tiny left pleural effusion versus pleural thickening. Normal size heart. Normal mediastinum and myles. Normal visualized pulmonary arteries. Normal visualized aortic arch and descending thoracic aorta. Normal visualized thoracic spine. Normal visualized ribs, clavicles, and shoulders. There is no demonstrated abnormality of the visualized soft tissue structures of the upper abdomen. RAD/Chest 1 View (Portable) IMPRESSION: Question tiny left pleural effusion versus pleural thickening. Basilar atelectasis. No focal consolidation. Electronically Signed: Enrique Taylor, at 1:23 EST Tel , Service support , CC: No Primary Care Physician; Tania Dick MD [employer] Salesperson: Signed EMERGENCY DEPARTMENT Observed: 01/17/2018 Status: F Source: [place] SUMMARY 2:47 AM [facility] REPOSITORY [facility] Medical Records Department [address] [place] [address] Emergency Department Summary 01/17/18 0150 MR#: [id number] Acct: [id number] Name: WAN DUBOSE Rep #: [id number] : 1975 43 From: Maegan Nowak MD PCP: Care Physician, No Primary Status: DEP ER - ER Visit Summary Date of Service: 01/17/18 Chief Complaint: Right flank pain History of Present Illness: The patient is a 43 F with intermittent right flank pain for the past couple of weeks. She states it was worse today. It is sharp like an ice pick. She denies dysuria but does note she is not been urinating as much as normal. Patient has a history of kidney stones. She has had ureteral stents placed twice. She had an L 5, S1 fusion in August of this year and had a hysterectomy in February 2017. Patient's primary workup and evaluations have been done in [place]. She recently moved to this area with her daughter. Physical Examination: Vital signs are unremarkable. Patient sitting upright in bed no acute distress. Head neck examination is unremarkable. Heart is regular rate and rhythm. Lung sounds are clear. Abdomen is soft with no focal anterior tenderness. She has hypoactive bowel sounds. Back examination does reveal right CVA tenderness. Test Results: CBC and chemistry studies normal. Urinalysis shows 5 ketones. 0-5 white cells, 0-5 red cells, and 3+ sediment are noted. CT flank shows no evidence of obstruction or definitive evidence of ureteral calculus. There is evidence of diverticulosis without diverticulitis. Emergency Department Course and Treatment: Patient was initially given morphine, Toradol, Zofran, and IV fluids. After returning from CT she was given 1 tab of [place] by mouth. Test results are discussed with the patient. She will be treated with Toradol at home and referred to local physicians for follow-up. Treatment Plan: [] Disposition: Discharge Impression: Right flank pain, uncertain etiology This note was generated with [employer] software. It may contain incorrect words, spelling, and punctuation that were not noted in review of the chart prior to signing ED Disposition - Plan for ED Patient: Disposition: Home or Assisted Living Chief Complaint: Flank Pain Instructions: ED Flank Pain Uncertain Cause Prescriptions: Ketorolac [Toradol] 10 mg PO Q6H PRN #20 tablet PRN Reason: Pain Referrals: Reece Vickers MD [STAFF PHYSICIAN] - Manisha Salter MD [STAFF PHYSICIAN] - Yolanda Corbett MD [STAFF PHYSICIAN] - What to do if you have Problems For any increased pain, shortness of breath, bleeding, nausea or vomiting, chest pain, or any unexpected problems, contact your Primary Care Provider. Call [facility] ([phone]) or report to the closest Emergency Room. Call 911 if necessary. 01/17/18 0247 <Electronically signed by Maegan Nowak MD> Date Maegan Nowak MD Cosigner Signature (If Indicated): Date CC: No Primary Care Physician DISCHARGE INSTRUCTION Observed: 01/16/2018 Status: F Source: [place] 8:42 PM [facility] REPOSITORY [facility] Medical Records Department [address] [place] [id number] Discharge Instruction 01/16/182039 MR#: [id number] Acct: [id number] Name: WAN DUBOSE Rep #: [id number] : 1975 43 From: Maegan Nowak MD PCP: Care Physician, No Primary Status: REG ER ED Disposition - Plan for ED Patient: Disposition: Home or Assisted Living Chief Complaint: Flank Pain Instructions: ED Flank Pain Uncertain Cause Prescriptions: Ketorolac [Toradol] 10 mg PO Q6H PRN #20 tablet PRN Reason: Pain Referrals: Yolanda Corbett MD [STAFF PHYSICIAN] - Manisha Salter MD [STAFF PHYSICIAN] - Reece Vickers MD [STAFF PHYSICIAN] - What to do if you have Problems For any increased pain, shortness of breath, bleeding, nausea or vomiting, chest pain, or any unexpected problems, contact your Primary Care Provider. Call [facility] ([phone]) or report to the closest Emergency Room. Call 911 if necessary. 01/16/182041 <Electronically signed by Maegan Nowak MD> Date Maegan Nowak MD Cosigner Signature (If Indicated): Date CC: No Primary Care Physician URINALYSIS, COMPLETE Collected: 01/16/2018 Status: F Source: [place] 7:56 PM [facility] REPOSITORY Order Comment: Microscopic field is filled. Other elements may be obscured. Order Date: 01/16/18 How was Urine Obtained? CLEAN CATCH TYPE CODE TESTS RESULT OUT OF RANGE REFERENCE UNITS LAB L400.3000 Yellow COLOR Normal Yellow LAB L400.3050 Clear Normal CLARITY Cloudy LAB L400.3200 Normal mg/dl Normal GLUCOSE, UR Normal LAB L400.3300 Negative mg/dL Normal BILIRUBIN URINE Negative LAB L400.3400 Negative mg/dl High 5 KETONE UR LAB L400.3465 1.002-1.030 Normal SP.GR. DIPSTX 1.015 LAB L400.3550 5.0 - 8.0 pH UR Normal 7.0 LAB L400.3600 Negative mg/dl PROT Normal DIPSTX Negative LAB L400.3700 Normal mg/dl Normal UROBILI Normal LAB L400.3750 Negative Normal NITRITE UR Negative LAB L400.3780 Negative /ul High 10 OCCULT BLOOD-UR LAB L400.3800 Negative /ul LEUK Normal ESTERASE Negative LAB L400.4050 0-5 /hpf WBC Normal 0-5 SEEN LAB L400.4100 0-5 /hpf Normal RBC-UA 0-5 SEEN LAB L400.4150 5-10 /hpf SQUAM 0 Normal EPI SEEN LAB L400.4300 None Seen /hpf 1+ Normal BACTERIA LAB L400.4350 <or=2+ /hpf 0 Normal MUCUS, URINE SEEN LAB L400.4900 3+ Normal AMORPHOUS Performed By: #### L400.0001 #### [facility] [address] [place], [place], [address] CBC W/DIFF, AUTOMATED Collected: 01/16/2018 Status: F Source: [place] 6:30 PM [facility] REPOSITORY TYPE CODE TESTS RESULT OUT OF RANGE REFERENCE UNITS LAB L100.1000 4.4-11.0 K/mm3 Normal WBC 7.6 LAB L100.1200 4.2-5.4 M/mm3 Normal RBC 4.72 LAB L100.1300 12.0-15.0 g/dl Normal HGB 14.3 LAB L100.1400 37-47 % Normal HCT 42.8 LAB L100.1500 81-99 fL Normal MCV 90.7 LAB L100.1600 27.0-32.0 pg Normal MCH 30.3 LAB L100.1700 32-36 g/gl Normal MCHC 33.4 LAB L100.1810 11.6-14.6 % Normal RDW CV 13.3 LAB L100.1820 35.1-43.9 fl High RDW SD 44.0 LAB L100.1900 150-450 K/mm3 Normal PLT 168 LAB L100.2000 6.2-12.0 fl Normal MPV 9.8 LAB L100.2100 47-70 % Normal NEUT% 66.2 LAB L100.2200 19-41 % Normal LY% 25.0 LAB L100.2300 0-10 % Normal MONO% 6.5 LAB L100.2400 0-5 % Normal EO% 1.6 LAB L100.2500 0-1 % Normal BASO% 0.4 LAB L100.2550 0.0-0.9 % Normal IM GRAN % 0.300 Result Comment: IG% - Immature Granulocytes (promyelocytes, myelocytes and metamyelocytes) > 1% indicates that a LEFT SHIFT is Present. LAB L100.2620 2.0-7.7 X10 3/uL Normal Absolute Neut 5.0 LAB L100.2720 0.83-4.51 X10 3/ul Normal Absolute Lymph 1.89 LAB L100.4500 Normal SMEAR COMMENT SCANNED Performed By: #### L100.0100 #### [facility] [address] [place], [address] BASIC METABOLIC Collected: 01/16/2018 Status: F Source: [place] PROFILE (BMP) 6:30 PM [facility] REPOSITORY TYPE CODE TESTS RESULT OUT OF RANGE REFERENCE UNITS LAB L501.0100 74-106 mg/dL Normal GLU 94 Result Comment: Please note revised GLUCOSE reference range effective 2017. LAB L501.1000 7-18 mg/dL Normal BUN 16 LAB L501.1100 0.55-1.02 mg/dL Normal CREAT,SERUM 0.94 Result Comment: The validity of the calculated GFR AND GFRAA in patients over 70 years has not been determined. Clinical correlation is essential. LAB L501.1110 >60 mL/min Normal EST GFR 69 Result Comment: Non- GFR Calc LAB L501.1115 >60 mL/min Normal EST GFR - AA 84 Result Comment: GFR Calc LAB L501.1255 ml/min Normal Estimated CRCL 66.64 LAB L501.1300 10-20 RATIO Normal BUN/CRE 17.0 LAB L501.2200 8.5-10 mg/dL Normal .1 CA 8.6 LAB L501.5300 136-14 mmol/L Normal 5 NA 142 LAB L501.5600 3.5-5. mmol/L Normal 1 K 4.0 LAB L501.5900 98-107 mmol/L Normal CL 107 LAB L501.6100 21.0-3 mmol/L Normal 2.0 CO2 29.0 LAB L501.6200 5-15 Normal GAP 6 Performed By: #### L500.2500 #### [facility] [address] [place], [place], [address] ABDOMEN/PELVIS WITHOUT Observed: 01/16/2018 Status: F Source: [place] CONT 6:06 PM [facility] REPOSITORY [facility] Imaging Services [address] [place] [address] Abdomen/Pelvis without Cont MR#: [id number] Acct: [id number] Name: WAN DUBOSE Rep #: [id number] : 1975 F 43 From: Edilberto Durham MD PCP: Care Physician, No Primary Status: REG ER Study: Abdomen/Pelvis without Cont Date of Exam: 01/16/18 Exam# [id number] Ordering Dr: Maegan Nowak MD STUDY: CT ABDOMEN AND PELVIS WITHOUT CONTRAST REASON FOR EXAM: Female, 43 years old. Right flank pain RADIATION DOSAGE (If Supplied By Facility): CTDIvol = ( 14.41 ) mGy, DLP = ( 710.34 ) mGycm TECHNIQUE: Transaxial images were obtained from the dome of the diaphragm to the symphysis pubis without oral contrast, and without intravenous contrast. Sagittal and coronal images were reconstructed. Individualized dose optimization techniques were used for this CT. COMPARISON: None. FINDINGS: There is interstitial thickening at both lung bases. The visualized portions of the heart are within normal limits. Normal liver. Gallbladder has been removed surgically. Normal spleen. Normal pancreas. Normal bilateral adrenal glands. No evidence for renal obstruction or definitive evidence for ureteral calculus. There is a small cyst in the lateral aspect of the right kidney Normal visualized stomach. Normal small intestine. Diverticular changes of the descending and sigmoid colon without evidence for acute diverticulitis. The appendix is visualized and appears normal. Normal abdominal aorta. Normal inferior vena cava. Normal retroperitoneum. Normal urinary bladder. Normal uterus not visualized suggesting prior partial hysterectomy Normal abdominal wall. Lumbar spine demonstrates mild spondylosis.. There is grade 1 spondylolisthesis at L5-S1 status post bilateral laminectomy and posterior fusion. CT/Abdomen/Pelvis without Cont IMPRESSION: No evidence for obstruction or definitive evidence for ureteral calculus Postsurgical changes status post cholecystectomy. 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 ALLERGIES ALLERGIES DATE TYPE / CODE NAME / CODE REACTION SEVERITY SOURCE 03/05/2018 Drug Penicillins/F Rash Unknown [facility]4160 [id number](RXN [facility] 65310(SNOMED ORM) Repository CT) 03/05/2018 Drug Sulfa Rash Unknown [facility]/4160 (Sulfonamide [facility] 53638(SNOMED Antibiotics)/ Repository CT) [id number](RX NORM) 03/05/2018 Drug sulfamethoxaz Rash Unknown [facility]/4160 ole/[id number] [facility] 80238(SNOMED 7(RXNORM) Repository CT) 03/05/2018 Drug trimethoprim/ Rash Unknown [facility]/4160 [id number](RX Hospital 28885(SNOMED NORM) Repository CT) 03/05/2018 Drug ciprofloxacin Rash Unknown [facility]/4160 /[id number](R [facility] 95583(SNOMED XNORM) Repository CT) ENCOUNTERS ENCOUNTERS ADMIT/DISCHARGE ACCOUNT ADMITTING ENCOUNTER LOCATION SOURCE NUMBER CLASS 03/05/2018/ [id number] Emergency [place] ing:ED Repository 02/12/2018/ [id number] Emergency [address] ing:ED Repository 01/16/2018/ [id number] Emergency [address] ing:ED Repository PAYERS PAYERS ENCOUNTER GUARANTOR PAYER SUBSCRIBER SOURCE 03/05/2018 WAN Jordan [id number] Insurance:KAREN DUBOSEB: [facility] [id number]AN[place] Number: Repository [id number]: [phone] [id number] [phone] () Date:[id number] [address]TS: 03/05/2018 Secondary NOT GIVENUNK Nikki Insurance:SELF PAY [facility] [place] Number: Effective Repository Date:2018-03-05 02/12/2018 WAN Rosas Primary WAN Ralph Jordan [id number] Insurance:KAREN DUBOSEB: [facility] [id number] PLANPolicy Number: Repository [id number]: [phone] [id number] [phone] (HP) Date:[id number] [address]WE: 02/12/2018 Secondary NOT GIVENUNK Nikki Insurance:SELF PAY [facility] [place] Number: Effective Repository Date:2018-02-12 01/16/2018 WAN L Primary WAN Rossa Nikki [id number] Insurance:ANTHEMPolic COOPERDOB: Community BRITTANY y Number: [id number] [id number] Repository [id number]: ([phone]) Date:[id number] [phone] () A MEDICAIDPO [address] [address], [place] [address]NR: 01/16/2018 Secondary NOT GIVENUNK Nikki Insurance:SELF PAY [facility] [place] Number: Effective Repository Date:2018-01-16
== END 2018-03-06 00:43 | disposition home or self-care (01) ==
LOC: ED 22:38
PROVIDERS: Emergency Provider Emergency Medicine
DX: R10.9 Unspecified abdominal pain (principal); R11.2 Nausea with vomiting, unspecified; R19.7 Diarrhea, unspecified; Z87.442 Personal history of urinary calculi; M54.9 Dorsalgia, unspecified; Z72.0 Tobacco use
CPT/HCPCS: 74176; 80053; 81001; 83690; 85025; 96361; 96374; 96375; 99285; J7030; A4216; J2405

== ENCOUNTER 2018-05-29 23:26 | Emergency (ER) | payer MEDICAID, SELFPAY ==
[2018-05-29 23:28] VITALS: BP 117/75; PULSE 78; RESP 17; TEMP 36; O2SAT 100; BMI 31.3
[2018-05-29 23:55] VITALS: BP 117/75; PULSE 78; RESP 17; TEMP 36; O2SAT 100
--- NOTE | 2018-05-30 00:16 | ED.DCSUM_ITS ---
- ER Visit Summary Date of Service: 05/30/18 Chief Complaint: Rash History of Present Illness: The patient is a 43 F presenting with rash. Patient complains of rash that started 2-3 days ago. She states 5 days ago she was given a one-time dose of Zithromax to treat chlamydia. She developed a rash 2-3 days ago. She states she also recently changed laundry detergents. She has itching all over. She has a rash to the arms trunk and legs. No oral lesions. No fever. She also complains of nausea and mild diarrhea. Denies vomiting. Denies other complaints. Physical Examination: Vitals are stable. Patient is afebrile. Alert no acute distress. HEENT exam is unremarkable. No mucous membrane lesions Neck is supple. Lungs are clear and equal bilaterally. Heart is regular rate and rhythm. Abdomen is soft nontender nondistended. No guarding or rebound Extremities are unremarkable. Skin is warm and dry. Mild diffuse maculopapular rash with excoriations from scratching Remainder of exam is unremarkable. Emergency Department Course and Treatment: Patient was given prednisone. She states she has Phenergan at home. She is advised to drink plenty of fluids. She is advised to put Zithromax on her allergy list until further allergy testing. She is advised to change laundry detergents. Advised to follow-up with primary care physician. Advised return to ED if worsening complaints. Disposition: Discharge home Impression: Rash, diarrhea This note was generated with [employer] dictation software. It may contain incorrect words, spelling, and punctuation that were not noted in review of the chart prior to signing ED Disposition - Plan for ED Patient: Referrals: Care Physician,No Primary [Primary Care Provider] -
--- NOTE | 2018-05-30 00:16 | ED.DEP ---
ED Disposition - Plan for ED Patient: Instructions: ED Dermatitis Contact Prescriptions: Prednisone [Deltasone] 40 mg PO DAILY #10 tablet Referrals: Florentino Purdy MD [STAFF PHYSICIAN] -
[2018-05-30] MEDS: predniSONE 20 MG Tablet 60 MG PO (00:32)
== END 2018-05-30 00:34 | disposition home or self-care (01) ==
LOC: ED 05-30 00:29
PROVIDERS: Emergency Provider Emergency Medicine
DX: R21 Rash and other nonspecific skin eruption (principal); R19.7 Diarrhea, unspecified; R11.0 Nausea; J45.909 Unspecified asthma, uncomplicated; Z72.0 Tobacco use
CPT/HCPCS: 99284

== ENCOUNTER 2018-06-07 21:12 | Emergency (ER) | payer MEDICAID, SELFPAY ==
[2018-06-07 21:14] VITALS: BP 126/83; PULSE 86; RESP 16; TEMP 36.6; O2SAT 95; BMI 30.9
--- NOTE | 2018-06-07 22:00 | ED.VISSUMM ---
- ER Visit Summary Date of Service: 06/07/18 Chief Complaint: Fall History of Present Illness: The patient is a 43 F presenting after fall. Patient states this occurred 2 nights ago. She states she missed a step and fell down approximately a flight of steps. She did not hit her head or lose consciousness. She complains of low back pain. Pain is in her low back and radiates to both legs. She denies bowel or bladder incontinence. She is able to ambulate with pain. She has tried ibuprofen at home. She has history of previous lumbar fusion August 2017. Denies other complaints. Physical Examination: Vitals are stable. Patient is afebrile. Alert no acute distress. HEENT exam is unremarkable. Neck is nontender Lungs are clear and equal bilaterally. Heart is regular rate and rhythm. Abdomen is soft nontender nondistended. Back: Bilateral lumbar paraspinal muscle tenderness, straight leg raise positive at 30 degrees bilaterally Extremities are unremarkable. Skin is warm and dry. No focal neurologic deficit. Normal strength and sensation Remainder of exam is unremarkable. Emergency Department Course and Treatment: Patient was given morphine, Zofran IM. Lumbar spine x-ray shows no acute process. Patient is advised to follow-up with primary care physician. Advised return to ED if worsening complaints. Disposition: Discharge home Impression: Lumbar strain status post fall This note was generated with [employer] dictation software. It may contain incorrect words, spelling, and punctuation that were not noted in review of the chart prior to signing ED Disposition - Plan for ED Patient: Referrals: Care Physician,No Primary [Primary Care Provider] -
[2018-06-07] MEDS: Ondansetron 4 MG/2 ML Vial IM (22:16)
[2018-06-07] MEDS: morphine 8 MG/ML Syringe IM (22:16)
--- NOTE | 2018-06-07 22:30 | RAD_ITS ---
HISTORY: lower back pain after fall. had back surgery in august EXAM/TECHNIQUE: XR Spine Lumbar 2 or 3 Views: COMPARISON: CT abdomen pelvis 03/05/18. FINDINGS: # of images incl. paperwork: 3 No acute fracture or dislocation. 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 Hardware intact. No acute soft tissue abnormality. Mild degenerative changes more cephalad lumbar spine. RAD/Lumbar Spine 2 or 3 Views IMPRESSION: No apparent injury to the lumbar spine. at 1260 Reported and signed by: John Bailon MD Electronically Signed: John Bailon, at 23:08 EST Tel , Service support ,
--- NOTE | 2018-06-07 23:36 | DCINST.ED_ITS ---
ED Disposition - Plan for ED Patient: Instructions: ED Sprain Strain Lumbar Prescriptions: Hydrocodone Bitart/Apap 5-325 [Morton 5MG-325MG] 1 tablet PO Q6H PRN PRN 3 Days #6 tablet PRN Reason: Pain Referrals: Care Physician,No Primary [Primary Care Provider] - Edilberto Lau MD [NON-STAFF] -
[2018-06-07 23:43] VITALS: RESP 18
== END 2018-06-07 23:46 | disposition home or self-care (01) ==
PROVIDERS: Emergency Provider Emergency Medicine
DX: S39.012A Strain of muscle, fascia and tendon of lower back, initial encounter (principal); W10.9XXA Fall (on) (from) unspecified stairs and steps, initial encounter; Y93.9 Activity, unspecified; Y92.89 Other specified places as the place of occurrence of the external cause; Y99.9 Unspecified external cause status; J45.909 Unspecified asthma, uncomplicated; Z72.0 Tobacco use; Z98.1 Arthrodesis status
CPT/HCPCS: 72100; 96372; 99282; J2405

== ENCOUNTER 2018-07-20 16:13 | Emergency (ER) | payer MEDICAID, SELFPAY ==
[2018-07-20 16:13] VITALS: BP 127/76; PULSE 89; RESP 16; TEMP 36.4; O2SAT 95; BMI 31.6
[2018-07-20 16:39] LABS: Color, Urine Yellow (Yellow); Glucose, Dipstick Normal (Normal); Ketone-Dipstick Negative (Negative); Leukocyte Esterase-Dipstick Negative /ul (Negative); Nitrite-Dipstick Negative (Negative); Occult Blood-Urine 25 /ul (Negative); Protein-Dipstick Negative (Negative); Specific Gravity, Urine 1.015 (1.002-1.030); Urine Bilirubin Dipstick Negative (Negative); Urine Clarity Cloudy (Clear); Urine Urobilinogen Normal (Normal)
[2018-07-20 16:48] LABS: Squamous Epithelial Cells - UA 0-5 SEEN /hpf (5-10)
[2018-07-20 16:49] LABS: Mucous, Urine RARE /hpf (<or=2+); Red Blood Cells-Urine 0-5 SEEN /hpf (0-5)
[2018-07-20 16:50] LABS: Bacteria RARE /hpf (None Seen); White Blood Cells 0-5 SEEN /hpf (0-5)
--- NOTE | 2018-07-20 16:58 | CT_ITS ---
STUDY: CT ABDOMEN AND PELVIS WITHOUT CONTRAST REASON FOR EXAM: Female, 43 years old. Nausea and vomiting flank pain RADIATION DOSAGE (If Supplied By Facility): CTDIvol = ( 15.86 ) mGy, DLP = ( 782.39 ) mGycm TECHNIQUE: Transaxial images were obtained from the dome of the diaphragm to the symphysis pubis without oral contrast, and without intravenous contrast. Sagittal and coronal images were reconstructed. Individualized dose optimization techniques were used for this CT. COMPARISON: CT 03/05/2018 and 01/16/2018. FINDINGS: This is a limited non-IV and nonoral contrast study. There is mild bibasilar subsegmental atelectasis. There is mild groundglass infiltrates within the lung bases. The visualized lung bases are unremarkable. The visualized portions of the heart are within normal limits. Normal liver. The prior cholecystectomy with surgical clips within the gallbladder fossa.. Normal spleen. Normal pancreas. Stable mild nodular enlargement left adrenal gland. Right adrenal glands normal. There is stable 2 cm exophytic right renal cyst.. Normal left kidney. Normal visualized stomach. The mild distended loops of proximal small bowel most likely ileus. There are scattered colonic diverticula.. The appendix is visualized and appears normal. Normal abdominal aorta. Normal inferior vena cava. Normal retroperitoneum. Normal urinary bladder. Normal abdominal wall. There are stable postsurgical changes lower lumbar spine with fixation rods and screws L5 vertebral body and sacrum. There is a grade 1 posterior listhesis L5 and S1 with prosthetic disc. There is significant subchondral sclerosis inferior endplate of L5 superior aspect of the sacrum. This is unchanged when compared to prior exam. CT/Abdomen/Pelvis without Cont IMPRESSION: Limited non-IV, nonoral contrast study, mild bibasilar infiltrates and subsegmental atelectasis Prior cholecystectomy Stable mild nodular enlargement left adrenal gland likely hyperplasia or small adenoma Stable to some exophytic right renal cyst Mild distention of proximal small bowel loops possibly antritis, mild ileus partial obstruction less likely, no evidence for complete small bowel obstruction Scattered colonic diverticulosis is no diverticulitis There are stable postsurgical changes lower lumbar spine with fixation rods and screws L5 vertebral body and sacrum. There is a grade 1 posterior listhesis L5 and S1 with prosthetic disc. There is significant subchondral sclerosis inferior endplate of L5 superior aspect of the sacrum. This is unchanged when compared to prior exam. Electronically Signed: Tim Garcia, at 18:24 EDT Tel , Service support ,
--- NOTE | 2018-07-20 17:00 | ED.VISSUMM ---
- ER Visit Summary Date of Service: 07/20/18 Chief Complaint: Bilateral flank pain History of Present Illness: The patient is a 43 F presenting with right greater than left flank pain. She states this started approximately 3 days ago. She has had nausea with no vomiting. She has had diarrhea. She has a history of kidney stones and states this feels similar. She has had subjective fever. She has had a cough for the past week. Denies urinary complaints. Physical Examination: Vitals are stable. Patient is afebrile. Alert no acute distress. HEENT exam is unremarkable. Neck is supple. Lungs are clear and equal bilaterally. Heart is regular rate and rhythm. Abdomen is soft right lower quadrant tenderness with no rebound or guarding Back right CVA tenderness Extremities are unremarkable. Skin is warm and dry. Remainder of exam is unremarkable. Emergency Department Course and Treatment: Patient given IV fluids, morphine, Zofran. Urinalysis shows trace blood, 0-5 white blood cells, 0-5 red blood cells. CBC, chemistries unremarkable. HCG negative. CT abdomen pelvis shows limited non-IV, nonoral contrast study, mild bibasilar infiltrates and subsegmental atelectasis. Prior cholecystectomy. Stable mild nodular enlargement left adrenal gland likely hyperplasia or small adenoma. Stable to some exophytic right renal cyst. Mild distention of proximal small bowel loops possibly antritis, mild ileus partial obstruction less likely, no evidence for complete small bowel obstruction. Scattered colonic diverticulosis is no diverticulitis. There are stable postsurgical changes lower lumbar spine with fixation rods and screws L5 vertebral body and sacrum. There is a grade 1 posterior listhesis L5 and S1 with prosthetic disc. There is significant subchondral sclerosis inferior endplate of L5 superior aspect of the sacrum. This is unchanged when compared to prior exam. On reevaluation, patient is resting comfortably. She states she has Zofran at home that she can take. She declines stool studies. Due to infiltrate seen on CT scan as well as cough she is given prescription for Zithromax. Advised to follow-up with primary care physician. Advised return to ED if worsening complaints. Disposition: Discharge home Impression: Diarrhea, bronchitis This note was generated with [employer] dictation software. It may contain incorrect words, spelling, and punctuation that were not noted in review of the chart prior to signing ED Disposition - Plan for ED Patient: Instructions: ED Diarrhea Viral Prescriptions: Azithromycin [Zithromax Z-Kalia] 250 mg PO UD #1 box Referrals: Jose Antonio Chow III, MD [STAFF PHYSICIAN] - Care Physician,No Primary [Primary Care Provider] -
[2018-07-20] MEDS: Morphine 4 MG/ML Syringe IV ×2 (17:06→18:26)
[2018-07-20] MEDS: 0.9% Normal Saline 1,000 ML 999 ML IV (17:06)
[2018-07-20] MEDS: Ondansetron 4 MG/2 ML Vial IV (17:06)
[2018-07-20 17:33] LABS: Absolute Lymphocyte Count 1.48 X10^3/ul (0.83-4.51); Absolute Neutrophil Count 6.1 X10^3/uL (2.0-7.7); Basophil# 0.02 X10^3/uL; Basophil% 0.2 % (0-1); Eosinophils% 1.2 % (0-5); Hematocrit 46.9 % (37-47); Hemoglobin 15.8 g/dl (12.0-15.0); Lymphocyte # 1.48 X10^3/ul (4.0); Mean Corp Hgb Conc 33.7 g/gl (32-36); Mean Corpuscular Hgb 29.8 pg (27.0-32.0); Mean Corpuscular Volume 88.5 fL (81-99); Mean Platelet Vol. 10.1 fl (6.2-12.0); Monocyte# 0.45 X10^3/uL; Monocyte% 5.5 % (0-10); Neutrophil # 6.14 X10^3/uL (2.7-7.7); Neutrophil % 74.7 % (47-70); Platelet Count 194 K/mm3 (150-450); RBC Distribution Width SD 42.3 fl (35.1-43.9); White Blood Count 8.2 K/mm3 (4.4-11.0)
[2018-07-20 17:35] LABS: POSITIVE COUNT NO; POSITIVE DIFFERENTIAL NO; POSITIVE MORPHOLOGY NO
[2018-07-20 17:39] LABS: Anion Gap 6 (5-15); BUN 17 mg/dL (7-18); BUN/Creat Ratio 20.7 RATIO (10-20); Calcium,Total 8.7 mg/dL (8.5-10.1); Chloride 106 mmol/L (98-107); Creatinine, Serum 0.82 mg/dL (0.55-1.02); EST Glomerular Filtration Rate 80 mL/min (>60); Est Glom Filt Rate - Afr Amer 97 mL/min (>60); Estimated Creatinine Clearance 73.18 ml/min; Glucose 101 mg/dL (74-106); Potassium 3.8 mmol/L (3.5-5.1); Sodium Level 141 mmol/L (136-145)
[2018-07-20 17:43] LABS: Pregnancy, Serum, hCG Quali. NEGATIVE Negative (0-9 Nonpreg)
[2018-07-20 18:18] VITALS: BP 121/67; PULSE 75; RESP 18; O2SAT 99
--- NOTE | 2018-07-20 19:13 | ED.DEP ---
ED Disposition - Plan for ED Patient: Instructions: ED Diarrhea Viral Referrals: Care Physician,No Primary [Primary Care Provider] -
--- NOTE | 2018-07-20 19:20 | ED.DEP ---
ED Disposition - Plan for ED Patient: Instructions: ED Diarrhea Viral Prescriptions: Azithromycin [Zithromax Z-Kalia] 250 mg PO UD #1 box Referrals: Care Physician,No Primary [Primary Care Provider] - Jose Antonio Chow III, MD [STAFF PHYSICIAN] -
[2018-07-20 19:33] VITALS: BP 119/77; PULSE 74; RESP 16; O2SAT 99
== END 2018-07-20 19:34 | disposition home or self-care (01) ==
LOC: ED 17:48
PROVIDERS: Emergency Provider Emergency Medicine
DX: R19.7 Diarrhea, unspecified (principal); R10.9 Unspecified abdominal pain; J40 Bronchitis, not specified as acute or chronic; K57.30 Diverticulosis of large intestine without perforation or abscess without bleeding; G95.89 Other specified diseases of spinal cord; N28.1 Cyst of kidney, acquired; R05 Cough; Z90.49 Acquired absence of other specified parts of digestive tract; Z87.442 Personal history of urinary calculi; Z72.0 Tobacco use
CPT/HCPCS: 74176; 80048; 81001; 84703; 85025; 99284; J7030; J2405

== ENCOUNTER 2018-07-23 20:26 | Emergency (ER) | payer MEDICAID, SELFPAY ==
[2018-07-23 20:27] VITALS: BP 145/74; PULSE 102; RESP 18; TEMP 36.2; O2SAT 98; BMI 30.9
--- NOTE | 2018-07-23 20:40 | RAD_ITS ---
STUDY: X-RAY - LEFT ANKLE REASON FOR EXAM: Female, 43 years old. Left ankle pain after fall. TECHNIQUE: 3 view(s) of the ankle. COMPARISON: None. FINDINGS: Normal visualized distal tibia and fibula. There is an accessory ossicle at the tip of the medial meniscus. Normal tibiotalar articulation and ankle mortise. Normal visualized talus and calcaneus. The visualized subtalar, talonavicular, calcaneocuboid and tarsal articulations are normal. There is mild anterolateral soft tissue swelling suggesting sprain. RAD/Ankle min 3 Views IMPRESSION: Soft tissue swelling suggesting sprain. There is no visualized fracture or dislocation. Electronically Signed: Donovan Thakkar DO at 20:53 EDT Tel [phone], Service support ,
--- NOTE | 2018-07-23 21:30 | ED.DEP ---
ED Disposition - Plan for ED Patient: Instructions: ED Sprain Ankle W X Ray Prescriptions: Naproxen [Naprosyn] 500 mg PO BID PRN #20 tablet Referrals: Care Physician,No Primary [Primary Care Provider] -
--- NOTE | 2018-07-23 21:33 | ED.VISSUMM ---
- ER Visit Summary Date of Service: 07/23/18 Chief Complaint: Left ankle pain History of Present Illness: The patient is a 43 F presenting with left ankle pain. Patient states she missed a curb and fell twisting her left ankle. She did not hit her head or lose consciousness. This occurred just prior to arrival. No other injuries. Physical Examination: Vitals are stable. Patient is afebrile. Alert no acute distress. HEENT exam is unremarkable. Neck is supple. Lungs are clear and equal bilaterally. Heart is regular rate and rhythm. Extremities left lateral ankle tenderness with soft tissue swelling. No Achilles tendon tenderness. No proximal fibula tenderness. No fifth metatarsal tenderness. Skin is warm and dry. No focal neurologic deficit. Remainder of exam is unremarkable. Emergency Department Course and Treatment: X-ray left ankle shows soft tissue swelling, no fracture. Patient is advised to ice and elevate. She is given an Aircast. She is given [place] x1. She is given a prescription for Naprosyn. Advised to follow-up with primary care physician. Advised return to ED for worsening complaints. Disposition: Discharge home Impression: Left ankle sprain This note was generated with [email or web address] dictation software. It may contain incorrect words, spelling, and punctuation that were not noted in review of the chart prior to signing ED Disposition - Plan for ED Patient: Instructions: ED Sprain Ankle W X Ray Prescriptions: Naproxen [Naprosyn] 500 mg PO BID PRN #20 tablet Referrals: Care Physician,No Primary [Primary Care Provider] -
[2018-07-23] MEDS: HYDROcodone Bitartrate/Apap 5/325 Tablet PO (21:44)
== END 2018-07-23 22:06 | disposition home or self-care (01) ==
LOC: ED 21:37
PROVIDERS: Emergency Provider Emergency Medicine
DX: S93.402A Sprain of unspecified ligament of left ankle, initial encounter (principal); W17.89XA Other fall from one level to another, initial encounter; Y93.9 Activity, unspecified; Y92.480 Sidewalk as the place of occurrence of the external cause; Y99.9 Unspecified external cause status
CPT/HCPCS: 73610; 99283

== ENCOUNTER 2018-07-30 20:00 | Emergency (ER) | payer MEDICAID, SELFPAY ==
[2018-07-30 20:01] VITALS: BP 136/56; PULSE 88; RESP 16; TEMP 36.5; O2SAT 97; BMI 30.9
--- NOTE | 2018-07-30 20:14 | ED.DCSUM_ITS ---
History of Present Illness Chief Complaint: Lower Extremity Injury Informant: Patient Occurred: - - Patient seen July 23 for initial injury Mechanism/Context: Injury Onset: Weeks Timing: Continuous Quality of Pain: Dull, Aching Location: Left ankle and foot Current Severity: Mild Maximum Severity: Moderate Worsened by: Weightbearing and movement Relieved by: Reportedly nothing Associated Symptoms: Negative for: Parasthesia, Weakness, Loss of Funtion Narrative: Patient is a 43-year-old woman who had an injury to her left ankle. She had x- rays which revealed soft tissue swelling with no evidence of fracture. She states her roommate wished her to be evaluated. She has been wearing the Aircast. She states she is taking anti-inflammatories. She was instructed to draw the office with her foot, elevate and ice. She asked if she was able to work. She was informed her restrictions are no heels, no going up and down ladders and no walking up incline. Prior similar symptoms: Yes Recent Illness/Hospitalization: Yes Past Medical History - Allergies and Home Meds Allergies/Adverse Reactions: Allergies amoxicillin [From Augmentin] Allergy (Verified 07/23/18 20:29) Hives ciprofloxacin [From Cipro] Allergy (Verified 07/23/18 20:29) Rash clavulanic acid [From Augmentin] Allergy (Verified 07/23/18 20:29) Hives Penicillins [PCN] Allergy (Verified 07/23/18 20:29) Rash Sulfa (Sulfonamide Antibiotics) Allergy (Verified 07/23/18 20:29) Rash sulfamethoxazole [From Bactrim] Allergy (Verified 07/23/18 20:29) Rash trimethoprim [From Bactrim] Allergy (Verified 07/23/18 20:29) Rash Primary Care Physician: Care Physician,No Primary [Primary Care Provider] - Prior records reviewed: Yes - ER visit for July 23 and x-rays Surgical History: noncontributory Smoking Status: Current every day smoker Alcohol: Rare Review of Systems Musculoskeletal: Reports: Extremity Pain. Denies: Myalgias, Arthralgias, Neck pain, Back pain, Swelling Skin: Denies: Rash, Abscess, Abrasions, Wounds Neurological: Denies: Weakness, Parasthesia, Numbness Hematologic: Denies: Easy bruising, Easy bleeding Physical Exam Vital Signs/Narrative: Vital Signs Temp Pulse Resp BP Pulse Ox 07/30/18 20:01 97.7 F L 88 16 136/56 H 97 - Extremity Exam Left Ankle: Limited ROM, - - There is discoloration over the anterior talofibular ligament. There is no pain the patient over the medial malleolus. There is pain the patient over the lateral malleolus. No laxity with anterior drawer sign. No pain to palpation base of the fifth metatarsal. DP and PT pulses are palpable. The Achilles tendon is functionally intact.. Negative for: Abrasion, Contusion, Deformity, Edema, Hematoma Left Foot: Contusion, Limited ROM. Negative for: Abrasion, Deformity, Edema, Hematoma, - Left Toe: Negative for: Abrasion, Contusion, Deformity, Edema, Hematoma, Limited ROM, - General: Well nourished, Well developed, Obese Head: Normocephalic, Atraumatic Eyes: Perrl, EOMI Cardiovascular: Regular rate Neurological: Alert, Oriented x3, Cranial nerves II-XII grossly intact, Normal Strength, Normal Sensation Psychological: Normal affect Diagnostic/Tx/Re-eval - Medical Decision Making Reviewed prior records and visualized x-ray. No fracture was noted. She was informed she has a sprained ankle and will take 4-6 weeks to heal. She was instructed to remove the Aircast withdrawal the office with her for 4-6 times a day, elevate, ice and anti-inflammatory. ED Disposition - Plan for ED Patient: Disposition: Home or Assisted Living Instructions: ED Sprain Ankle W X Ray Referrals: Care Physician,No Primary [Primary Care Provider] - Additional Instructions: Elevate your left foot/ankle as much as possible. Apply ice 6-8 times a day for 20-30 minutes per application. As far as restrictions no heeled shoes, walking up inclines or going up and down ladders. Remove Aircast to draw the alphabet with your foot from A to Z 4-6 times a day.
== END 2018-07-30 20:31 | disposition home or self-care (01) ==
LOC: ED 20:20
PROVIDERS: Emergency Provider Emergency Medicine
DX: S93.402D Sprain of unspecified ligament of left ankle, subsequent encounter (principal); X58.XXXD Exposure to other specified factors, subsequent encounter; F17.200 Nicotine dependence, unspecified, uncomplicated
CPT/HCPCS: 99282

== ENCOUNTER 2021-02-02 13:46 | Outpatient (RCR) | payer MEDICAID, SELFPAY ==
--- NOTE | 2021-02-03 14:51 | HP.FCE ---
Floor (Occasional 1-33% of Day): 15# Floor (Frequent 34-66% of Day): 8# Floor (Constant 67-100% of Day): NA Floor PDL: Sedentary-Light Knee (Occasional 1-33% of Day): 15# Knee (Frequent 34-66% of Day): 8# Knee (Constant 67-100% of Day): NA Knee PDL: Sedentary-Light Waist (Occasional 1-33% of Day): 15# Waist (Frequent 34-66% of Day): 8# Waist (Constant 67-100% of Day): NA Waist PDL: Sedentary-Light Shoulder (Occasional 1-33% of Day): 15# Shoulder (Frequent 34-66% of Day): 8# Shoulder (Constant 67-100% of Day): NA Shoulder PDL: Sedentary-Light Overhead (Occasional 1-33% of Day): 10# Overhead (Frequent 34-66% of Day): NA Overhead (Constant 67-100% of Day): NA Overhead PDL: Sedentary Bending: Occasional Ability (1-33% of day) Comments: low occasional ability Squatting: Occasional Ability (1-33% of day) Comments: with use of external support Kneeling: No Ablility (0% of day) Reaching out: Frequent Ability (34-66% of day) Comments: completed while sitting Reaching up: Frequent Ability (34-66% of day) Comments: completed while sitting Sitting: Frequent Ability (34-66% of day) Walking: Occasional Ability (1-33% of day) Comments: with use of straight cane Standing: Occasional Ability (1-33% of day) Duration Sedentary Sedentary Light Light Light Medium Medium Medium Heavy Very Heavy Heavy Occasional (0-33% of day) Frequent (34-66% of day) Constant (67-100% of day) 10 # Negligible Negligible 15 # 8 # Negligible 20 # 10# Negli. 35 # 18 # 7 # 50 # 25 # 10 # 75 # 100 # >100 # 38 # 50 # >50 # 15 # 20 # >20 # Weight:: 83.915 kg Hand Dominance: right Medical History Including Restrictions: pt states she was in good health until 2016 when she was having back pain and had kidney stones and stints placed, hysterectomy having 5 surgeries in 2016. pt states she started having leg numbness and tripping so pt had back sx August 2017. sx was a lumbar fusion L5-S1 with disc replacement. pt states this was not a successful sx. pt has been seeing pain mtg and has stated she is doing physical therapy and has been doing therapy for the past 2 years. pt states she continues to have epidural injection to decrease pain. pt states she did see a Arthritis but she states this told her there was nothing she could treat. pt states she is working with a urologist with her frequent urination and prolapsed bladder. pt states she does see a client service coordinator 2019 for heart murmur. pt is going to physical therapy 2x week. pt states she did have a FCE completed in 2018. pt states she does exercise 2 x a week. pt does smoke cigarettes' - smoked for 30 years trying to quit Diagnoses: migraine dx 2018 controlled with medication. heart murmur dx 2018. osteoarthritis multiple joints. Knee pain. lumbar post laminectomy syndrome. lumbar radiculopathy. DDD lumbar spine. myofascial pain syndrome. chronic pian syndrome. myalgias. arthralgias. muscle spasm. chronic low back pain. joint pain hand. diverticulitis. PTSD. anxiety. Symptoms: Thoracic pain. lumbar pain. bilateral LE neuropathy. leg weakness. bladder incontinence. feeling of pressure in rectum Pain: Pt states current pain 6/10 without pain medication ( Percocet, ibuprofen ) pt did not take her pain medication because she had to drive self to this apt. 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 pt completed her schooling in 2020. . Pt states she last worked in 2018 at [employer] she worked there for 6 months. pt states she worked 30-40 hours a week and her job required her to sit for long periods. 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 this required a lot of standing. Behavioral: pt was emotional throughout session. pt cooperative but was unable to complete tasks due to increase in pain level. ADLS: pt lives a lone in a two story home, with four entry with one hand rail. pt states 14 steps to 2nd floor to her bedroom. pt states bathroom is on first level. pt states she has a tub shower and will use a shower chair, pt states she is ind. with dressing. pt states she can cook light meals and does the dishes. pt states she her youngest dtr (24) will assist with laundry and vacuum, cooking and heavy lifting, and will go with pt grocery shopping. pt states she drives ind. pt states her land lord does the yard work. ROM: Pt demo ROM of UB/LB WFL grossly throughout. limited lumbar flexion at 70*. pt used external support while performing ROM requested tasks Strength: pt demo with generalized strength 4+/5 grossly throughout UB and LB. Right Button Breaker Operator Strength Average: 40.00 Right Button Breaker Operator Strength Percentile: 3% Left Button Breaker Operator Strength Average: 38.33 Left Button Breaker Operator Strength Percentile: 5% Right Lateral Pinch Average: 10.00 Right Lateral Pinch Percentile: 25% Left Lateral Pinch Average: 10.00 Left Lateral Pinch Percentile: 25% Right Tripod Pinch Average: 6.00 Right Tripod Pinch Percentile: <10% Left Tripod Pinch Average: 6.00 Left Tripod Pinch Percentile: <10% Comments: heart rate initial 96 Sensation: [place] Monofilament Sensory testing. right 2.83 = Normal sensation. left 2.83 = Normal sensation Fine Motor: right 9 hole peg test. right 19.89 = 50%. left 20.08 =50% Balance: No noted loss of balance during assessment- pt did utilize external support as table tops during some of the repetitive tasks. Pt stated she did this to assist in support of her-self. Bending: pt demo the ability to bend forward three times with use of external support. pt refused bending forward 10x or 10 x rapidly due to her pain level. pt reported pain at 7/10 heart rate at 103. pt can bend forward on a low occasional ability. Squatting: pt demo the ability to squat three times with external support- pt refused to perform 10/10 and 10/10 rapidly due to pain level. pts heart rate increase to 110 with this tasks- pt reported back/leg and hip pain at 7/10 pt became emotional following this task. pt can squat on a low occasional ability Kneeling: pt completed kneeling 3/3 times with external support- pt unable to perform more as pain level in back hips and LE was 7/10. heart rate 123. pt leaned heavily on external support to complete tasks. pt can kneel on low occasional ability Reaching out/up: pt completed reaching up/out 3/3, 10/10, and 10/10 rapidly. pt completed while sitting pt can perform on a frequent ability. pain 6/10 low back. heart rate 93 Walking: pt ambulates with antalgic gait pattern for short distances without straight cane- pt stopped x 2 standing for 30 sec. and returned to ambulating completing a 150 feet. distance. pt ambulates with a sow antalgic gait pattern with use of a straight cane for distances for greater than 150'. pt required increase time to complete ambulation distance of 300 feet. Standing: pt demonstrated the ability to stand 4 min with shifting body weight and holding her low back. pt can stand on low occasional ability Sitting: pt demo the ability to sit for 40 min with noted wt. shifting and facial gestures. pt can sit on a frequent ability with shifting her body weight. Climbing Stairs: pt demonstrated the ability to ascend 10 steps with a single leg step pattern and use of hand rails with fair ability. pt descended 10 steps with a left leg step down and turning body to side. pt able to complete with fair ability. Floor Lift: pt demonstrated the ability to lift 15# maximally from this level with fair ability. Knee Lift: pt demonstrated the ability to lift 15# maximally from this level with fair ability Waist Lift: pt demonstrated the ability to lift 15# maximally from this level with fair ability Shoulder Lift: pt demonstrated the ability to lift 15# maximally from this level with fair ability Overhead Lift: pt demonstrated the ability to lift 10# maximally from this level with fair ability Carrying: pt demonstrated the ability to carry 15# for 8 feet. with an antalgic gait pattern Comments: pt limited with functional mobility by pain in back, hips and LE. pt demonstrated good lifting mechanics during lift tasks. pt required increase time to complete tasks.
--- NOTE | 2021-02-03 14:51 | HP.OTFCE.D ---
FCE D/C Summary - Discharge WAN DUBOSE was seen for a one time visit for an FCE on 02/02/21 and is discharged.
== END 2021-02-02 19:00 | disposition home or self-care (01) ==
LOC: OT 13:46
DX: M15.9 Polyosteoarthritis, unspecified (principal); M25.569 Pain in unspecified knee; M96.1 Postlaminectomy syndrome, not elsewhere classified; M62.838 Other muscle spasm; M79.643 Pain in unspecified hand; G89.4 Chronic pain syndrome; F11.20 Opioid dependence, uncomplicated; Z79.899 Other long term (current) drug therapy; M51.16 Intervertebral disc disorders with radiculopathy, lumbar region
CPT/HCPCS: 97750

== ENCOUNTER → 2022-06-27 | Outpatient (CLI) | payer MEDICAID, SELFPAY ==
[2022-06-27 18:15] LABS: Amphetamine Urine VISTA NEGATIVE (<1000 ng/mL); Barbiturate Urine VISTA NEGATIVE (< 200 ng/mL); Benzodiazepine Urine VISTA NEGATIVE (< 200 ng/mL); Cocaine Urine VISTA NEGATIVE (< 300 ng/mL); Ecstacy Urine VISTA NEGATIVE (< 500 ng/mL); Methadone Urine VISTA NEGATIVE (< 300 ng/mL); PCP Urine VISTA NEGATIVE (< 25 ng/mL); THC Urine VISTA NEGATIVE (< 50 ng/mL); Vista UDS pH Range 5
== END | disposition home or self-care (01) ==
LOC: LAB 17:25
PROVIDERS: Referring Provider Anesthesiology Pain Medicine; Visit Provider Anesthesiology Pain Medicine
DX: F11.20 Opioid dependence, uncomplicated (principal)
CPT/HCPCS: 80307

== ENCOUNTER 2023-01-12 13:43 | Outpatient (RCR) | payer MEDICAID, SELFPAY ==
--- NOTE | 2023-01-18 08:19 | HP.OTFCE_ITS ---
Task Lift Floor (Occasional 1-33% of Day): 15# Floor (Frequent 34-66% of Day): 8# Floor (Constant 67-100% of Day): NA Floor PDL: Sedentary-Light Knee (Occasional 1-33% of Day): 15# Knee (Frequent 34-66% of Day): 8# Knee (Constant 67-100% of Day): NA Knee PDL: Sedentary-Light Waist (Occasional 1-33% of Day): 15# Waist (Frequent 34-66% of Day): 8# Waist (Constant 67-100% of Day): NA Waist PDL: Sedentary-Light Shoulder (Occasional 1-33% of Day): 15# Shoulder (Frequent 34-66% of Day): 8# Shoulder (Constant 67-100% of Day): NA Shoulder PDL: Sedentary-Light Overhead (Occasional 1-33% of Day): 10# Overhead (Frequent 34-66% of Day): NA Overhead (Constant 67-100% of Day): NA Overhead PDL: Sedentary Work Activity/Posture Bending: Occasional Ability (1-33% of day) Comments: with use of external support Squatting: Occasional Ability (1-33% of day) Comments: with use of external support Kneeling: No Ablility (0% of day) Reaching out: Occasional Ability (1-33% of day) Reaching up: Occasional Ability (1-33% of day) Sitting: Frequent Ability (34-66% of day) Walking: Occasional Ability (1-33% of day) Comments: with use of adaptive device Standing: Occasional Ability (1-33% of day) Reference Reference: Duration Sedentary Sedentary Light Light Light Medium Medium Medium Heavy Very Heavy Heavy Occasional (0-33% of day) Frequent (34-66% of day) Constant (67-100% of day) 10 # Negligible Negligible 15 # 8 # Negligible 20 # 10# Negli. 35 # 18 # 7 # 50 # 25 # 10 # 75 # 100 # >100 # 38 # 50 # >50 # 15 # 20 # >20 # Patient Information Height: 1.6 m Weight:: 89.358 kg Hand Dominance: right Medical History Medical History Including Restrictions: pt states she was in good health until 2016 when she was having back pain and had kidney stones and stints placed, hysterectomy having 5 surgeries in 2016. pt states she started having leg numbness and tripping so pt had back sx August 2017. sx was a lumbar fusion L5-S1 with disc replacement. pt states this was not a successful. pt is unable to see spine sx due to insurance coverage. pt has been seeing pain mtg in [address] Henley to this year. States he is trying to help but due to insurance issues has not been able to get some of the testing done at this time. Pt states Dr. Henley did send her to physical therapy. Pt states she has been doing therapy for the past 2-3 years. pt states she continues to have epidural injection to decrease pain. pt states she did see a Arthritis drVincenzo but she states this told her there was nothing she could treat. pt states she is working with a urologist with her frequent urination and prolapsed bladder. pt states she does see a textile stylist 2019 for heart murmur. pt states she just finished her Physical therapy. pt states she did have a FCE completed in 2017, and 2020. pt states she does exercise 2 x a week. Pt states she was dx with Fibromyalgia this year - taking medication and sees a Autoimmune dr/Arthritis dr. pt does smoke cigarettes' - smoked for 30 years trying to quit Pt states she has not been told a lift restriction. Medication: Ondansetron - Umbrelry- Aimouig- Razatriptan - Atorvastatin - Pregabalin- Meloxican- Vit. D3- Atorvastatin - Tizanidine- [id number]-Feckohppqkjwi-Ajwfhvflvf Diagnoses Diagnoses: intercranial hypertension dx 2022 DMII Dx 2022 OA DDD lumbar Myofascial pain syndrome Chronic pain syndrome Myalgias Arthralgias Muscle spasms Diverticulitis PTSD Anxiety Lumbar post laminectomy syndrome OA bilateral knees Symptoms Symptoms: Fatigue Chronic pain pressure in head Bilateral leg pain Sleep disturbance Pain Pain: pt states her current pain level is 6/10. pt states she has not taken pain medication because she was going to drive today. Pt states medication does make her drowsy and did not want to drive when taking her medication. 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 pt completed her schooling in 2020. . Pt states she last worked in 2018 at [employer] she worked there for 6 months. pt states she worked 30-40 hours a week and her job required her to sit for long periods. 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 this required a lot of standing. pt cooperative but was unable to complete tasks due to increase in pain level. Behavioral Behavioral: pt cooperative but was unable to complete some tasks due to increase in pain level. ADLS ADLS: pt lives a lone in a two story home, with four entry with one hand rail. pt states 14 steps to 2nd floor to her bedroom. pt states bathroom is on first level. pt states she has a tub shower and will use a shower chair, pt states she is ind. with dressing. pt states she can cook light meals and does the dishes. pt states she her youngest dtr (24) will assist with laundry and vacuum, cooking and heavy lifting, and will go with pt grocery shopping. pt states she drives ind. pt states her land lord does the yard work. ROM: Pt demo ROM of UB/LB WFL grossly throughout. limited lumbar flexion at 70*. pt used external support while performing ROM requested tasks Physical Examination Physical Examination: heart rate at rest 82 heart rate after assessment 85 ROM: pt demo with limited cervical and lumbar Strength: Fet2 peak force in lbs- shoulder flexion right 5.9# left 7.9# shoulder extension right 13# left 12# Biceps right 13.9# left 13# Triceps right 15# left 14# Hip flexion right 15# left 10.4# Quads right 11# left 8# Hamstrings right 12# left 14# Right Connection Worker Strength Average: 36.66 Right Connection Worker Strength Percentile: .9% Left Connection Worker Strength Average: 33.33 Left Connection Worker Strength Percentile: 2.3% Right Lateral Pinch Average: 10.66 Right Lateral Pinch Percentile: 25% Left Lateral Pinch Average: 12.66 Left Lateral Pinch Percentile: 50% Right Tripod Pinch Average: 10.66 Right Tripod Pinch Percentile: 25% Left Tripod Pinch Average: 10.00 Left Tripod Pinch Percentile: 25% Sensation: right thumb 3.61 left 3.61 right IF 3.61 left 2.83 right MF 2.83 left 2.83 right RF 2.83 left 2.83 right LF 2.83 left 2.83 interpretation Normal sensation Fine Motor: 9 hole peg test right 25.54 10% for age left 21.12 50% for age Balance: no loss of balance during assessment Non Material Handling Activities Bending: pt demo the ability to bend forward in limited plan of motion 3/3x and 7/10x pt unable to perform 10x rapidly with use of external support heat rate 104 pain in lower back down legs pt can bend forward on occasional ability with external support Squatting: pt demo the ability to squat in limited plane of motion 3/3x and 10/10x pt unable to perform 10/10x rapidly heart rate 104 pain level 7/10 pt did use external support pt can squat on occasional ability with use of external support Kneeling: unable Reaching out/up: pt demo the ability to reach up/out 3/3x 10/10x and 10/10x rapidly pt heart rate 85 pain in UE 6.5/10 ( fingers/elbows from the movement) pt can reach up/out on occasional ability Walking: Pt ambulated for a total of 6min with use of straight can and antalgic gait pattern. 103 heart rate with ambulation pt can ambulate on occasional ability with use of adaptive devices Standing: pt demo stood about three min with shifting body weight pt can stand on occasional ability Sitting: pt demo the ability to sit for 45 min with no apparent or expressed discomfort pt can sit on frequent ability Climbing Stairs: pt demo the ability to ascend and descend 10 steps with a modified approach- pt leans on rail and ascends with right leg single step and same way down with single step left leg down- pt does slowly and did stop multilple times. Dynamic Occasional Lifting Capacity Floor Lift: pt demo the ability to lift 15# maximally from this level with fair lifting mechanics. Physical Demand level at Sedentary Light Knee Lift: pt demo the ability to lift 15# maximally from this level with fair lifting mechanics. Physical Demand level at Sedentary Light Waist Lift: pt demo the ability to lift 15# maximally from this level with fair lifting mechanics. Physical Demand level at Sedentary Light Shoulder Lift: pt demo the ability to lift 15# maximally from this level with fair lifting mechanics. Physical Demand level at Sedentary Light Overhead Lift: pt demo the ability to lift 10# maximally from this level with fair lift mechanics. Physical Demand level Sedentary Carrying: pt demo the ability to carry 10# in left hand with can in right for 15 feet with good ability Comments: pt states she started to get muscle pain in bilateral legs- pain 10/17 states pain limits her ability and will stop her from doing tasks.
--- NOTE | 2023-01-18 08:20 | HP.OTFCE.D ---
FCE D/C Summary Discharge text: WAN DUBOSE was seen for a one time visit for an FCE on 01/12/23 and is discharged.
== END 2023-01-12 19:00 | disposition home or self-care (01) ==
LOC: OT 13:43
PROVIDERS: Referring Provider Anesthesiology Pain Medicine; Visit Provider Anesthesiology Pain Medicine
DX: M54.9 Dorsalgia, unspecified (principal); M79.606 Pain in leg, unspecified
CPT/HCPCS: 97750

== ENCOUNTER → 2023-03-25 | Outpatient (CLI) | payer MEDICAID, SELFPAY ==
--- NOTE | 2023-03-25 08:24 | MRI_ITS ---
EXAM: MR LUMBAR SPINE WITHOUT INTRAVENOUS CONTRAST CLINICAL INDICATION: RADICULOPATHY TECHNIQUE: Multiplanar and multisequence MR images of the lumbar spine without intravenous contrast. Magnetic field strength 1.5 T. COMPARISON: CT scan of the abdomen and pelvis 07/20/2018. Lumbar spine x-ray 06/07/2018. FINDINGS: VERTEBRAE: L5 laminectomy. Posterior fusion L5-S1 with pedicle screws and rods, bone graft and an intervertebral disc spacer. SPINAL CORD: Unremarkable. Normal position and signal intensity of the conus medullaris. SOFT TISSUES: Unremarkable. DISCS/SPINAL CANAL/NEURAL FORAMINA: L1-L2: Unremarkable. Normal disc height and morphology. Normal spinal canal and lateral recesses. Normal neuroforamina. L2-L3: Unremarkable. Normal disc height and morphology. Normal spinal canal and lateral recesses. Normal neuroforamina. L3-L4: Unremarkable. Normal disc height and morphology. Normal spinal canal and lateral recesses. Normal neuroforamina. L4-L5: Unremarkable. Normal disc height and morphology. Normal spinal canal and lateral recesses. Normal neuroforamina. L5-S1: The disc space is fused with an intervertebral spacer in place. No spinal canal or foraminal stenosis. MRI/Spine Lumbar (Routine) IMPRESSION: 1. No nerve root impingement identified. 2. Posterior fusion L5-S1 with pedicle screws and rods, bone graft and an intervertebral disc spacer. 3. L5 laminectomy. Electronically Signed: Jamie Santos MD at 5:53 EST ,
== END | disposition home or self-care (01) ==
LOC: MRI 07:52
PROVIDERS: PCP Internal Medicine; Referring Provider Anesthesiology Pain Medicine; Visit Provider Anesthesiology Pain Medicine
DX: M54.16 Radiculopathy, lumbar region (principal)
CPT/HCPCS: 72148